=== PATIENT | female | born 1935 | race Caucasian/White ===

== ENCOUNTER 2016-07-29 08:10 | Inpatient (IN) ==
--- NOTE | 2016-07-29 11:15 | Nephrology History & Physical ---
History of Present Illness Chief complaint: Uremia History of present illness: Ms. Arreola is a 80 year old female with progressive CKD who has become symptomatic with N/V and anorexia. She has had a left arm fistula for over one year in anticipation of dialysis. Creatinine has been near 9 and Hct has responded to the use of Aranesp. She has had no MT, stroke, etc. She has remained fairly active until recently but is now clearly anorectic, losing weight, and ready to begin hemodialysis Home Medications Medication Instructions Recorded Confirmed Type Metoprolol Tartrate Tab [Lopressor 50 mg PO BID 07/17/14 07/17/14 History Tab] Sodium Bicarb Tab 650 mg PO TID 07/17/14 07/17/14 History Allergies Allergy/AdvReac Type Severity Reaction Status Date / Time No Known Allergies Allergy Verified 07/17/14 07:30 Review of Systems 12 point system: reviewed and no additional remarkable complaints except as stated Medical,Surgical,& Family Hx - Medical History Cardio: History of: Hypertension - Surgical History Cardiac Surgeries: Patient Denies: Femoral-Popliteal Bypass Graft, Cardiac Catheterization, Cardiac Surgery, Carotid Endarterectomy, Internal Defibrillator, Vascular Access Devices HEENT Surgeries: Patient denies: Carotid Endarterectomy Abdominal Surgeries: Patient denies: Splenectomy Exam - Nephrology - General Appearance General appearance: well-developed, well-nourished, appears started age Neck: no JVD, no thyromegaly, no carotid bruit, supple Respiratory: no kyphosis, no scoliosis Cardiology: no murmurs, no rub, no gallops, no edema, regular rate, regular rhythm, normal S1, normal S2 Gastrointestinal: normoactive bowel sounds Integumentary: no rash, warm and dry Neurologic: no focal deficit, no asterixis, alert and oriented x3, reflexes 2+ and symmetric, gait normal, strength 5/5 Musculoskeletal: no deformities, no erythema, no cyanosis, no clubbing Psychiatric: mood/affect appropriate, cooperative Assessment and Plan - Time spent with patient Time spent with patient: Greater than 30 minutes (1) Uremia of renal origin Status: Acute Assessment and plan: Begin hemodialysis Current Visit: Yes (2) ESRD (end stage renal disease) Problem details: new diagnosis Status: Acute Assessment and plan: Begin hemodialysis Current Visit: Yes (3) Anemia due to chronic kidney disease Status: Acute Assessment and plan: Continue EPO Current Visit: Yes
[2016-07-29] MEDS ORDERED: ACETAMINOPHEN 325 MG TABLET PO PRN (11:19)
[2016-07-29] MEDS ORDERED: ONDANSETRON 4 MG/2 ML VIAL IV PRN (11:19)
[2016-07-29] MEDS ORDERED: ONDANSETRON 4 MG TABLET PO PRN (11:19)
[2016-07-29 11:51] LABS: Basophils # 0.1 10*3/uL (0.0-0.2); Basophils % 0.9 % (0.0-0.8); Eosinophils % 0.1 % (0.00-10.9); Hematocrit 30.6 VOL% (35.7-47.0); Hemoglobin 9.7 GM/DL (12.0-16.0); Immature Granulocytes % 0.5 %; Immature Granulocytes Absolute 0.04 #; Lymphocytes # 1.2 10*3/uL (1.4-4.0); Lymphocytes % 15.2 % (21.3-54.2); Mean Corpuscular HGB Conc 31.7 GM/DL (32-36); Mean Corpuscular Hemoglobin 31 PG (27-34); Mean Corpuscular Volume 96.5 FL (87-102); Mean Platelet Volume 10.1 FL (9.6-12.0); Monocytes # 0.4 10*3/uL (0.11-0.8); Monocytes % 4.9 % (1.7-12.7); Neutrophils # 6.2 10*3/uL (1.4-7.4); Neutrophils % 78.4 % (38.7-73.9); Platelet Count 215 T/CUMM (130-400); Red Blood Count 3.17 MC/CUMM (3.8-5.5); Red Cell Distribution Width 13.2 % (9.3-17.3); White Blood Count 7.9 T/CUMM (4-12)
--- NOTE | 2016-07-29 12:05 | XRay Report ---
XR chest 2V Indication: Shortness of breath Comparison: None available Findings: The heart and mediastinum are normal in size and configuration. The pulmonary vascularity is normal in caliber. Calcified granulomas and right hilar lymph nodes are present. No other lung infiltrates, effusions, pneumothorax or other abnormality is demonstrated. Impression: Calcified granulomas right lung and calcified lymph nodes in right hilum typical of previous granulomatous infection. No other acute findings. PROCEDURE INTERPRETED AT [facility] DEPARTMENT OF RADIOLOGY Final Report Signed by: Dr. Zev Hinton
[2016-07-29 12:22] LABS: Albumin 3.7 G/DL (3.4-5.0); Bilirubin,Total 0.5 MG/DL (0.2-1.0); Calcium 6.3 MG/DL (8.5-10.1); Osmolality,Calculated 313.4 MOS/KG (273-304); Potassium 4.8 MMOL/L (3.5-5.1); Total Protein 6.6 G/DL (6.4-8.3)
[2016-07-29 13:11] LABS: Hepatitis A Ab IgM Quant 0.02 Index; Hepatitis A Ab IgM Result Negative (Negative); Hepatitis B Core IgM Quant 0.23 Index; Hepatitis B Core IgM Result Negative (Negative); Hepatitis B Surface Ag Quant < 0.10 Index; Hepatitis B Surface Ag Result Negative (Negative); Hepatitis C Virus Ab Quant 0.11 Index; Hepatitis C Virus Ab Result Negative (Negative)
[2016-07-29] MEDS ORDERED: LIDOCAINE/PRILOCAINE CREAM 5 GM TUBE TOP PRN (13:42)
[2016-07-29 14:02] LABS: % Iron Saturation 80.1 % (18-50)
--- NOTE | 2016-07-29 14:33 | Dialysis Note ---
Dialysis Note - Dialysis Note Ms. Arreola is seen during her first hemodialysis. She is tolerating very well in her left upper arm fistula is working well. We will remove no fluid today her serum calcium was low when measured yesterday and certainly will be low today and it will take quite a while for that, but this is totally asymptomatic and is due to her renal impairment.
[2016-07-29 17:12] LABS: Apearance,Urine CLEAR (Clear); Bilirubin,Urine Negative (Negative); Blood, Urine Small mg/dL (Negative); Glucose,Urine (UA) >=500 mg/dL (Negative); Ketones,Urine Negative (Negative); Nitrite,Urine Negative (Negative); Protein,Urine 100 MG/DL; Squamous Epithelial Cell,Urine Occasional /HPF (0-10); Urine Color Straw (Yellow); Urine Specific Gravity 1.005 (1.001-1.035); Urine Urobilinogen < 2.0 EU/DL (0.2-1.0); WBC,Urine <1 /HPF (0-6)
[2016-07-29] MEDS: CALCIUM ACETATE 667 MG CAPSULE PO SCH (17:45)
[2016-07-29] MEDS: METOPROLOL TARTRATE 50 MG TABLET PO SCH (20:44)
[2016-07-29] MEDS: CLOBETASOL 0.05% OINT 15 GM TUBE TOP SCH (21:07)
[2016-07-30] MEDS: CALCIUM ACETATE 667 MG CAPSULE PO SCH ×3 (07:28→16:48)
--- NOTE | 2016-07-30 09:14 | Dialysis Note ---
Dialysis Note - Dialysis Note Ms. Arreola is seen during her hemodialysis. She will dialyze 3 hours today. Blood pressure is well maintained. We will plan not to dialyze tomorrow but will dialyze again on August 01. Will make arrangements for admission to the [facility] dialysis unit.
[2016-07-30] MEDS: METOPROLOL TARTRATE 50 MG TABLET PO SCH (11:03)
[2016-07-30] MEDS: amLODIPine 2.5 MG TABLET PO SCH (11:03)
[2016-07-30 12:05] LABS: Basophils # 0.1 10*3/uL (0.0-0.2); Hemoglobin 8.8 GM/DL (12.0-16.0); Immature Granulocytes % 0.5 %; Immature Granulocytes Absolute 0.03 #; Lymphocytes # 0.8 10*3/uL (1.4-4.0); Lymphocytes % 13.3 % (21.3-54.2); Mean Corpuscular HGB Conc 31.4 GM/DL (32-36); Mean Corpuscular Hemoglobin 31 PG (27-34); Mean Corpuscular Volume 97.6 FL (87-102); Mean Platelet Volume 10.3 FL (9.6-12.0); Monocytes # 0.7 10*3/uL (0.11-0.8); Monocytes % 11.2 % (1.7-12.7); Neutrophils # 4.6 10*3/uL (1.4-7.4); Platelet Count 155 T/CUMM (130-400); Red Blood Count 2.87 MC/CUMM (3.8-5.5); Red Cell Distribution Width 13.2 % (9.3-17.3); White Blood Count 6.2 T/CUMM (4-12)
[2016-07-30] MEDS: CLOBETASOL 0.05% OINT 15 GM TUBE TOP SCH ×2 (12:16→21:13)
[2016-07-30 12:40] LABS: Calcium 7.3 MG/DL (8.5-10.1); Osmolality,Calculated 292.3 MOS/KG (273-304)
[2016-07-30] MEDS: ZALEPLON 5 MG CAPSULE PO PRN (21:13)
[2016-07-31] MEDS: CALCIUM ACETATE 667 MG CAPSULE PO SCH ×3 (08:20→17:44)
[2016-07-31] MEDS: CLOBETASOL 0.05% OINT 15 GM TUBE TOP SCH ×2 (08:22→20:44)
[2016-07-31] MEDS ORDERED: DARBEPOETIN ALFA 100 MCG/ML VIAL SUBCUT ONE (09:16)
--- NOTE | 2016-07-31 09:16 | Nephrology Progress Note ---
Nephrology - PN: Subj Interval history: Ms. Arreola is seen in follow-up of her end-stage renal disease. She had an infiltration of her left arm AV fistula yesterday and dialysis was cut short. She is fairly well controlled as far as her uremia and her appetite is begun to return BUN was about 40 yesterday and her hematocrit is stable at 28. She did have caused some lightheadedness yesterday following dialysis and we are holding her blood pressure medicine for now. Her chest is clear in her left arm is bruised as expected over the AV fistula. Plan is to hold off on dialysis tomorrow to rest the fistula and found her an outpatient spot to begin dialysis and possibly be discharged tomorrow and will have her next dialysis take place as an outpatient. She will need a dose of Aranesp today. She is scheduled for that as an outpatient we will give it today Exam (PN)-Nephrology - Vital Signs Vital signs: Period Temp Pulse Resp BP Sys/Summers Pulse Ox Last 24 Hr 96.1 F-99.0 F 72-77 18-20 105-159/46-85 98-99 - Lab 07/30/16 11:53 07/30/16 11:53 Most recent lab results Calcium 7.3 MG/DL (8.5-10.1) L 07/30/16 11:53 Phosphorus 7.0 MG/DL (2.5-4.9) H 07/29/16 11:32 Assessment and Plan (1) Uremia of renal origin Status: Acute Assessment and plan: Begin hemodialysis Current Visit: Yes (2) ESRD (end stage renal disease) Problem details: new diagnosis Status: Acute Assessment and plan: Begin hemodialysis Current Visit: Yes (3) Anemia due to chronic kidney disease Status: Acute Assessment and plan: Continue EPO Current Visit: Yes
[2016-07-31] MEDS: METOPROLOL TARTRATE 50 MG TABLET PO SCH (11:00)
[2016-07-31] MEDS: amLODIPine 2.5 MG TABLET PO SCH (11:01)
[2016-07-31] MEDS: ZALEPLON 5 MG CAPSULE PO PRN (20:43)
[2016-08-01] MEDS: CLOBETASOL 0.05% OINT 15 GM TUBE TOP SCH (08:34)
[2016-08-01] MEDS: CALCIUM ACETATE 667 MG CAPSULE PO SCH ×2 (08:34→11:57)
[2016-08-01 15:33] VITALS: BP 146/58
--- NOTE | 2016-08-01 15:47 | Discharge Summary ---
Hospital Course - Hospital Course Hospital Course: Ms. Arreola is a pleasant 80-year-old lady very functional. 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 She had a creatinine of approximately 11 and BUN of 110 as an outpatient and was admitted to begin hemodialysis. She had her first dialysis on July 29 and a second dialysis on July 30. She infiltrated her AV fistula on the sixth there was some bruising of the arm but no significant hematoma formation. She was mildly hypotensive following that episode but blood pressure medicines were held and she has done well since then. She is discharged now to outpatient dialysis she will ultimately dialyze in the [facility] but will begin dialysis in the [facility] dialysis unit on a Monday schedule. Medicines being held are amlodipine Lopressor and sodium bicarbonate. Blood pressure at the time of discharge is approximately 150/60 but in view of her recent weakness and lightheadedness were holding that until her pressure returns to normal. Her hematocrit is 28 at the time of discharge and she did receive a dose of Aranesp in the hospital. Final diagnosis end-stage renal disease #2 institution of hemodialysis #3 history of hypertension Plan outpatient dialysis initially at the [facility] dialysis unit and ultimately at the [facility] unit. Diagnosis - Discharge Diagnosis (1) Uremia of renal origin Status: Acute (2) ESRD (end stage renal disease) Status: Chronic (3) Anemia due to chronic kidney disease Status: Chronic Specialty Discharge - Follow Up or Referrals - Speciality Discharge Instructions Nephrology Instructions: Dialysis at the [facility] dialysis unit Monday. Ultimately dialysis in the [facility] dialysis unit. Best weight appears to be 57 kg Discharge Plan - Discharge Data Disposition: Disch To Home/Self Care Condition at Discharge: Stable Discharge Diet: advance to your usual diet Activity: resume usual activities as tolerated Hygiene: no restrictions Weight Bearing at Discharge: full weight bearing Driving: no restrictions - Discharge Medications No Action Sodium Bicarb Tab 1,300 mg PO TID Metoprolol Tartrate Tab [Lopressor Tab] 50 mg PO BID amLODIPine [Norvasc] 2.5 mg PO DAILY Calcium Acetate [Phoslo] 1 capsule PO TID Clobetasol Propionate [Clobetasol 0.05% Cream] 1 units TOP DIRECTED Zolpidem [Ambien] 5 mg PO BEDTIME PRN PRN Reason: Sleep - Follow Up or Referral - Forms/Instructions Instructions: Acute Kidney Injury (DC), Dialysis Diet (DC), Anemia (DC) Additional Discharge Instructions: She will hold Norvasc and Lopressor. She does not need to continue with sodium bicarb. She will continue with her steroid ointment for scan and PhosLo 1300 mg with each meal. Exam - Constitutional Vitals: Period Temp Pulse Resp BP Sys/Summers Pulse Ox Last 24 Hr 97.4 F-98.9 F 74-86 17-19 121-160/48-70 96-99 DS: Provider Date of admission: 07/29/16 10:15 Primary care physician: . No PCP Attending physician on admission: Aaron Cook MD Consults: 07/29/16 11:24 Consult to Pharmacy [CONS] Routine Reason for Pharmacy Consult: Adjust Meds Renal Funct 07/30/16 09:14 Consult to Case Mgmt/Social Srvs [CONS] Routine Reason for Case Mgmt/Social Srvs: Dialysis Discharging clinician: Aaron Cook MD
== END 2016-08-01 16:09 | disposition home or self-care (01) | DRG 682 ==
LOC: N.5E 10:15
PROVIDERS: ADMIT Internal Medicine Nephrology; ATTEND Internal Medicine Nephrology

== ENCOUNTER 2016-10-11 14:07 | Observation (INO) ==
--- NOTE | 2016-10-11 17:09 | Emergency Department Note ---
Hira Rivera Brittany, am scribing for, and in the presence of, Richard Wiggins MD 14:46. Feliciano Rivera Phillip K, MD, personally performed the services described in this documentation, ascribed by Kassie Iniguez in my presence, and it is both accurate and complete 709 . Arrival - Arrival Chief Complaint: Non-Specific Stated Complaint: ruptured dialysis graft ED Nursing Triage Note: Pt states that she started dialysis approx 1130 this am - pt states that she started having pain to her dialysis site - hematoma noted to dialysis fistula Mode of Arrival: Stretcher Limitations: No Limitations Source: Patient, RN Notes Reviewed - History of Present Illness HPI Narrative: Patient is an 80 y/o white female presenting to the ED with c/o pain near left AV fistula site s/p beginning dialysis this morning at 1130. Patient states that while at dialysis on , October 06 s/p venipuncture and beginning of dialysis, noticed that her LUE began to swell near AV fistula site. Patient reports she noticed a "knot" formation in the left anterior chest wall s/p onset of swelling of the LUE. Patient states that swelling had decreased, but worsened today after beginning dialysis this morning. Patient confirms left anterior chest wall tenderness to palpation. She reports that her AV fistula was placed about 4-[address] Swann and about 3-4 weeks ago she had stent placement per Dr. Alcocer. Patient initially began taking dialysis about 3 months ago per family member. Patient has no other complaint/pain. Onset (ago): hour(s) (3) Consistency: constant Date of Last Menstrual Period: hyster Allergies/Adverse Reactions: Allergies Allergy/AdvReac Type Severity Reaction Status Date / Time No Known Allergies Allergy Unverified 10/11/16 14:08 Home Medications: Home Medications Medication Instructions Recorded Confirmed Type Metoprolol Tartrate Tab [Lopressor 50 mg PO BID 07/17/14 07/29/16 History Tab] Sodium Bicarb Tab 1,300 mg PO TID 07/17/14 07/29/16 History Calcium Acetate [Phoslo] 1 capsule PO TID 07/29/16 07/29/16 History Clobetasol Propionate [Clobetasol 1 units TOP DIRECTED 07/29/16 07/29/16 History 0.05% Cream] Zolpidem [Ambien] 5 mg PO BEDTIME PRN 07/29/16 07/29/16 History amLODIPine [Norvasc] 2.5 mg PO DAILY 07/29/16 07/29/16 History Review of System - Review of System 12 point system: reviewed and no additional remarkable complaints except as stated - Review of System Constitutional: Absent: chills, fever Eyes: Absent: vision change Head/Ears/Nose/Throat: Absent: nasal drainage, sore throat Respiratory: Absent: respiratory distress Cardiovascular: Absent: chest pain Gastrointestinal: Absent: abdominal pain, nausea, vomiting, diarrhea, constipation Genitourinary female: Absent: dysuria, frequency, urgency Musculoskeletal: Present: arm pain (near AV fistula site), other (LUE swelling; chest knot). Absent: back pain, leg pain, neck pain Skin: Absent: rash Neurological: Absent: headache Psychiatric: Absent: anxiety, depression Medical,Surgical,& Family Hx - Medical History Cardio: History of: Hypertension Psychological: No history of: Anxiety Disorders, ADHD, Behavior Problems, Bipolar Disorder, Depression, Previous Suicide Attempt, Psychiatric/Substance Abuse Tx, Schizophrenia, Psychiatric Problems Neurology: No history of: Seizures Renal: History of: Dialysis, Renal Failure (mon) - Surgical History Cardiac Surgeries: Patient Denies: Femoral-Popliteal Bypass Graft, Cardiac Catheterization, Cardiac Surgery, Carotid Endarterectomy, Internal Defibrillator, Vascular Access Devices HEENT Surgeries: Surgical HX of: Tonsilectomy & Adenoidectomy (tonsillectomy) Patient denies: Carotid Endarterectomy Abdominal Surgeries: Patient denies: Splenectomy Reproductive Surgeries: Surgical HX of;: Hysterectomy - Social History Smoking Status: Never smoker Frequency of Alcohol Use: None Type of Drug Use: None Exam Vital Signs: Vital Signs Temperature 97.4 F L 10/11/16 14:15 Pulse Rate 76 10/11/16 14:45 Respiratory Rate 20 10/11/16 14:45 Blood Pressure 164/72 10/11/16 14:45 O2 Sat by Pulse Oximetry 100 10/11/16 14:45 - General General appearance: alert, in no apparent distress - Head Head exam: Present: atraumatic, normocephalic, normal inspection - Eye Eye exam: Present: normal appearance, PERRL, EOMI - ENT ENT exam: Present: normal exam, normal oropharynx - Neck Neck exam: Present: normal inspection, full ROM, trachea midline - Chest Chest inspection: Present: symmetric chest wall rise, tenderness (left anterior chest wall tenderness to palpation). Absent: normal inspection (swelling to the left anterior chest wall) - Respiratory Respiratory exam: Present: normal lung sounds bilaterally - Cardiovascular Cardiovascular exam: Present: regular rate, normal rhythm, normal heart sounds - Abdominal Exam Abdominal exam: Present: soft, normal bowel sounds. Absent: tenderness - Extremities Exam Extremities exam: Present: full ROM, other (left AV fistula) - Back Exam Back exam: Present: normal inspection - Neurological Exam Neurological exam: Present: alert, oriented X3, CN II-XII intact. Absent: motor sensory deficit - Psychiatric Psychiatric exam: Present: normal affect, normal mood - Skin Skin exam: Present: warm, dry Results - Diagnostic Findings Procedure: Ultrasound: report reviewed by me (Sonogram of the left upper arm reveals a large hematoma compressing on the fistula with a clot in the fistula.) Disposition Clinical Impression: Hematoma left upper arm, Clot in AV fistula, ESRD (end stage renal disease) Case discussed with: patient, patient's family Disposition: Still a Patient Condition: Stable Additional Instructions: Admit to Dr. Gutierrez who will place a dialysis catheter in the a.m.
[2016-10-11] MEDS ORDERED: ACETAMINOPHEN 325 MG TABLET PO PRN (17:12)
[2016-10-11] MEDS ORDERED: ONDANSETRON 4 MG/2 ML VIAL IV PRN (17:12)
--- NOTE | 2016-10-11 17:22 | Ultrasound Report ---
US arterial duplex UE LT Clinical Information: Evaluate fistula, Left upper extremity swelling, pain with dialysis Comparison: Comparison made to prior fistulogram dated 08/26/2016 Technique: Targeted ultrasound evaluation of the left upper extremity arteries and fistula with venous drainage was performed with color Doppler and spectral analysis. Findings: There is note made of prominent generalized soft tissue swelling within the left upper chest and left upper arm. There is a prominent echogenic/hypoechoic collection overlying the left cephalic vein fistula which prominently narrows the cephalic vein due to extrinsic compression and is nonspecific but favored to represent a hematoma. There is also a small filling defect noted within the left cephalic vein near the valve which may represent a nonobstructing thrombus. The left common carotid artery, subclavian artery, axillary artery and brachial artery are widely patent with preserved blood flow. The brachial to cephalic fistula appears widely patent. There is also suggestion of widely patent drainage throughout the cephalic vein including visualization of the central cephalic vein to internal jugular vein confluence. Impression: Patent brachial to cephalic vein arteriovenous fistula with external compression due to an overlying hematoma. Small nonocclusive thrombus within the cephalic vein near the valve, possibly related to external compression. Mild generalized subcutaneous edema throughout the left upper arm and chest wall. PROCEDURE INTERPRETED AT [facility] DEPARTMENT OF RADIOLOGY Final Report Signed by: Grover Beyer
[2016-10-11 17:47] LABS: Basophils # 0.1 10*3/uL (0.0-0.2); Basophils % 0.9 % (0.0-0.8); Eosinophils # 0.2 10*3/uL (0.0-0.87); Eosinophils % 2.4 % (0.00-10.9); Hematocrit 40.8 VOL% (35.7-47.0); Hemoglobin 13.4 GM/DL (12.0-16.0); Immature Granulocytes % 0.2 %; Immature Granulocytes Absolute 0.01 #; Lymphocytes # 1.6 10*3/uL (1.4-4.0); Lymphocytes % 23.3 % (21.3-54.2); Mean Corpuscular HGB Conc 32.8 GM/DL (32-36); Mean Corpuscular Hemoglobin 32 PG (27-34); Mean Corpuscular Volume 98.8 FL (87-102); Mean Platelet Volume 11.6 FL (9.6-12.0); Monocytes # 0.6 10*3/uL (0.11-0.8); Monocytes % 9.6 % (1.7-12.7); Neutrophils # 4.2 10*3/uL (1.4-7.4); Neutrophils % 63.6 % (38.7-73.9); Platelet Count 190 T/CUMM (130-400); Red Blood Count 4.13 MC/CUMM (3.8-5.5); Red Cell Distribution Width 13.6 % (9.3-17.3); White Blood Count 6.7 T/CUMM (4-12)
[2016-10-11 17:58] LABS: Calcium 9.4 MG/DL (8.5-10.1); Potassium 4.9 MMOL/L (3.5-5.1)
--- NOTE | 2016-10-12 08:43 | General Surg History&Physical ---
Assessment and Plan - Time spent with patient Time spent with patient: Greater than 30 minutes (1) End-stage renal disease on hemodialysis Status: Acute Assessment and plan: 80-year-old white female with history of hypertension and end-stage renal disease on hemodialysis admitted by Dr. Cordero with pain and edema of her left upper extremity near her fistula site. The swelling has improved and her pain has improved. She has a good bruit and thrill in the fistula. Dr. Cordero will place a tunneled hemodialysis catheter today in the operating room and patient can be discharged home later today. She will have dialysis through the catheter until her arm has healed up. Dr. Cordero has seen and examined patient and further recommendations to follow. Current Visit: Yes (2) Hypertension Status: Acute Current Visit: Yes (3) Left upper arm pain Status: Acute Current Visit: Yes History of Present Illness Chief complaint: Left arm pain History of present illness: Ms. Arreola is a 80 year old white female with history of hypertension and end- stage renal disease on hemodialysis admitted through the emergency room on 2016 complaining of pain near her left AV fistula site. Patient states that on dialysis on the status post venipuncture and beginning of dialysis she noticed her left upper extremity began to swell near the AV fistula site. There is a knot formation in left anterior chest wall with swelling. She says the swelling is decreased but the pain was worsening so she came to the ED. Patient states it looks better to her other than the bruising and the swelling has decreased today but is still a little sore. Her vital signs are stable and her labs are stable. Upper extremity duplex shows patent brachial to cephalic vein AV fistula with external compression due to an overlying hematoma. There was a small nonocclusive thrombus within the cephalic cephalic vein near the valve. On exam patient has some bruising of her left upper extremity up into her shoulder with minimal edema around the deltoid and dark ecchymosis. She has a good thrill and bruit in her fistula. She denies headache, dizziness, chest pain, shortness of breath, abdominal pain , or lower extremity swelling. Patient's case was discussed with Dr. Wiggins the ED physician and Dr. Cordero the surgeon and it was agreed she would be admitted for treatment. Home Medications Medication Instructions Recorded Confirmed Type Metoprolol Tartrate Tab [Lopressor 50 mg PO BID 07/17/14 10/11/16 History Tab] Calcium Acetate [Phoslo] 1 capsule PO TID 07/29/16 10/11/16 History Clobetasol Propionate [Clobetasol 1 units TOP BID 07/29/16 10/11/16 History 0.05% Cream] Zolpidem [Ambien] 5 mg PO BEDTIME PRN 07/29/16 10/11/16 History amLODIPine [Norvasc] 2.5 mg PO DAILY 07/29/16 10/11/16 History Allergies Allergy/AdvReac Type Severity Reaction Status Date / Time No Known Allergies Allergy Unverified 10/11/16 14:08 Medical,Surgical,& Family Hx - Medical History Cardio: History of: Hypertension Psychological: No history of: Anxiety Disorders, ADHD, Behavior Problems, Bipolar Disorder, Depression, Previous Suicide Attempt, Psychiatric/Substance Abuse Tx, Schizophrenia, Psychiatric Problems Neurology: No history of: Seizures HEENT: History of: Eye Problem (glasses) Rheumatology: History of;: Rheumatoid Arthritis Renal: History of: Dialysis, Renal Failure ([facility]) Gastrointestinal: History of: Diverticulitis/ Diverticulosis Musculoskeletal: History of: Musculoskeletal Problems (Carpal tunnel) Hematology: History of: Clotting Problems (left AV graft clotted.) - Surgical History Cardiac Surgeries: Patient Denies: Femoral-Popliteal Bypass Graft, Cardiac Catheterization, Cardiac Surgery, Carotid Endarterectomy, Internal Defibrillator, Vascular Access Devices HEENT Surgeries: Surgical HX of: Tonsilectomy & Adenoidectomy (tonsillectomy) Patient denies: Carotid Endarterectomy Abdominal Surgeries: Surgical HX of: Appendectomy, Colonoscopy Patient denies: Splenectomy Reproductive Surgeries: Surgical HX of;: Gynecologic Surgery, Hysterectomy - Family History Family History: Reports;: Family Cancer - Social History Smoking Status: Never smoker Frequency of Alcohol Use: None Type of Drug Use: None Marital Status: Lives With:: Alone Functional capacity: independent ambulation Exam - Constitutional Vitals: Period Temp Pulse Resp BP Sys/Summers Pulse Ox Last 24 Hr 96.8 F-97.7 F 67-79 18-20 130-192/60-102 97-100 Exam: Constitutional System: No distress. No tremulousness. Head: Normocephalic, atraumatic. Ears, Nose and Throat System: No evidence of Otitis or Mastoiditis. No epistaxis or discharge, poor dentition Eyes System: Pupils equal, round, and reactive. Extraocular muscles intact. Neck: Supple, without adenopathy, No jugular venous distention. No thyromegaly, neck mass, or prior surgery apparent. Respiratory System: Chest clear to auscultation. Cardiovascular System: Heart with regular rate and rhythm. No murmur. GI System: Abdomen soft, nontender. Normo active bowel sounds present. Musculoskeletal System: limbs with no pedal edema. Full distal pulses. Left upper extremity with dark ecchymosis and mild edema around deltoid, good bruit and thrill in fistula Neurological System: No discernable sensory deficit. No aphasia Psychiatric System: Conversation is rational Review of systems: A complete 10 system review of systems was obtained and pertinent positives and negatives per HPI Quality Measures - VTE Contraindication to Pharmacological VTE Prophylaxis: High Risk of Bleeding Results - Labs CBC & BMP: 10/11/16 14:23 10/11/16 14:23 Lab Results: I have reviewed the past 24 hour labs - Diagnostic Findings Procedure: Ultrasound: report reviewed by me (Duplex of left upper extremity showed patent brachial to cephalic vein AV fistula with external compression due to hematoma)
[2016-10-12] MEDS ORDERED: ZALEPLON 5 MG CAPSULE PO PRN (08:50)
[2016-10-12] MEDS ORDERED: amLODIPine 2.5 MG TABLET PO SCH (09:00)
[2016-10-12] MEDS ORDERED: METOPROLOL TARTRATE 50 MG TABLET PO SCH (09:00)
[2016-10-12] MEDS ORDERED: CLOBETASOL 0.05% CREAM 15 GM TUBE TOP SCH (09:00)
[2016-10-12] MEDS: CALCIUM ACETATE 667 MG CAPSULE PO SCH ×2 (09:10→15:07)
--- NOTE | 2016-10-12 10:11 | EKG Report ---
Stationary ECG Study [facility] Test Date: 10/12/2016 10:12:22 AM Pat Name: BERTHA LAROSE Department: Room: 339 Gender: F [employer]: : [id number] Requested by: Brian Chavez Order Number: [id number] Reading MD: CARLY MORENO Intervals [place] Rate: 62 P: 72 [place]: 167 QRS: 50 QRSD: 89 T: 50 QT: 434 QTc: 439 Interpretive Statements SINUS RHYTHM Electronically Signed On 10-14-16 15:48:00 CDT by CARLY MORENO [email or web address]
[2016-10-12] MEDS ORDERED: HEPARIN 5,000 UNIT/1 ML VIAL ONE (11:38)
[2016-10-12] MEDS ORDERED: BUPIVACAINE 0.25% /EPI 10 ML VIAL ONE (11:38)
[2016-10-12] MEDS ORDERED: LIDOCAINE 1%/EPI INJ 20 ML VIAL ONE (11:39)
[2016-10-12] MEDS ORDERED: PROPOFOL 200 MG/20 ML VIAL IV ONE (11:58)
[2016-10-12] MEDS ORDERED: LIDOCAINE 2% 5 ML VIAL ONE (11:58)
--- NOTE | 2016-10-12 12:33 | Operative Note ---
Date of procedure: 10/12/16 Pre-op diagnosis: End-stage renal disease, malfunctioning AV fistula Post-op diagnosis: same Procedure: Procedure performed: Placement of right internal jugular tunneled hemodialysis catheter #2 ultrasound-guided venous access #3 supervision and interpretation fluoroscopy Procedure in detail: After informed consent was obtained, patient taken operating suite lights upon the operating table. After monitored anesthesia initiated patient was placed in Trendelenburg position the bilateral neck and chest were prepped and draped in usual sterile fashion. After procedural pause ultrasound brought over through a sterile sleeve covering ultrasound the right neck revealed a patent and compressible although small right internal jugular vein. The right internal jugular vein was then accessed using an 18-gauge Seldinger needle under ultrasound guidance on the first attempt. There is return of nonpulsatile dark red blood. Guidewire inserted without resistance. Fluoroscopy demonstrated guidewire be coursing the appropriate position. Next a 19 cm cuffed hemodialysis catheter was tunneled from separate incision in the right chest wall up to the base the right neck. Dilator and sheath were placed over the guidewire using Seldinger technique under fluoroscopic guidance. Dilator and guidewire were removed leaving the sheath in place. The catheter inserted through the sheath and the sheath peeled away leaving the catheter tip in Spear vena cava. Catheter withdrew and flushed easily and was locked with heparinized saline. Catheter was secured in place with 2-0 nylon. Incision closed with 2-0 nylon. Sterile dressings applied. Patient was taken to recovery room in stable condition. All lap and needle counts correct at the end of the case. Anesthesia: MAC, local Surgeon / Physician: Arsenio Cordero Estimated blood loss: other (Less than 10 cc) Specimens: none sent Condition: stable Disposition: PACU Results - Labs CBC & BMP: 10/11/16 14:23 10/11/16 14:23 Discharge Plan - Discharge Medications No Action Metoprolol Tartrate Tab [Lopressor Tab] 50 mg PO BID amLODIPine [Norvasc] 2.5 mg PO DAILY Calcium Acetate [Phoslo] 1 capsule PO TID Clobetasol Propionate [Clobetasol 0.05% Cream] 1 units TOP BID Zolpidem [Ambien] 5 mg PO BEDTIME PRN PRN Reason: Sleep - Follow Up or Referral - Forms/Instructions
--- NOTE | 2016-10-12 12:48 | Anesthesia Post-Op ---
Anesthesia Post OP - Post Ansesthetic Evaluation Patient seen in post op: Yes Resp: within normal limits CV: within normal limits Mental: within normal limits Temp: within normal limits Ndoy-[id number]: within normal limits Nausea and Vomiting: within normal limits Pain: within normal limits
[2016-10-12] MEDS ORDERED: MIDAZOLAM 2 MG/2 ML VIAL ONE (12:55)
[2016-10-12] MEDS ORDERED: fentaNYL 100 MCG/2 ML VIAL ONE (12:56)
[2016-10-12] MEDS ORDERED: SODIUM CHLORIDE 0.9% 100 ML IV ONE (12:56)
[2016-10-12] MEDS ORDERED: ePHEDrine 50 MG/ML AMP ONE (12:56)
--- NOTE | 2016-10-12 13:11 | XRay Report ---
XR chest 1V portable Indication: Catheter placement Comparison: Chest x-ray dated July 29, 2016 Technique: Single frontal view of the chest. Findings: Right-sided central venous catheter tip projects over the proximal SVC. The cardiomediastinal silhouette is stable in configuration. Chronic/granulomatous change without focal consolidation, pleural effusion, or pneumothorax. Vascular stent projects over the mid left clavicle. Visualized osseous and surrounding soft tissue structures otherwise appear grossly unchanged. IMPRESSION: No adverse interval change. PROCEDURE INTERPRETED AT [facility] Final Report Signed by: Dr Melecio Cowart
[2016-10-12] MEDS ORDERED: ONDANSETRON 4 MG/2 ML VIAL ONE (13:22)
[2016-10-12] MEDS ORDERED: HYDROmorphone 2 MG/1 ML VIAL ONE (13:22)
[2016-10-12] MEDS ORDERED: ONDANSETRON 4 MG/2 ML VIAL IV PRN (13:22)
[2016-10-12] MEDS ORDERED: HYDROmorphone 2 MG/1 ML VIAL IV PRN (13:22)
[2016-10-12] MEDS ORDERED: SODIUM CHLORIDE 0.9% 1,000 ML IV SCH (13:30)
[2016-10-12] MEDS ORDERED: SODIUM CHLORIDE 0.9% 250 ML IV SCH (13:30)
--- NOTE | 2016-10-12 14:25 | Discharge Summary ---
Hospital Course - Hospital Course Hospital Course: Ms. Arreola is a very pleasant 80-year-old white female with history of hypertension and end-stage renal disease on hemodialysis admitted by Dr. Cordero on 10/11/2016 with a painful left upper extremity AV fistula site. After her last dialysis patient had pain swelling and bruising of this left upper arm. Patient had a good bruit and thrill of this aVF and duplex ultrasound showed patent brachial to cephalic vein AV fistula with an external compression due to an overlying hematoma. Patient was taken to the operating room on 10/12/2016 for placement of a tunneled hemodialysis catheter. Patient is to use this for hemodialysis until cleared by Dr. Cordero to start using her fistula again. She will be discharged home with a one-week follow-up with Dr. Cordero. She will be given some pain medicines and instructed not to use her IVF for HD. Complete discharge instructions were given to the patient and her family in the room. Care coordination, chart review, and completed discharge paperwork took approximately 32 minutes. - Time spent with patient Time with patient DS: Greater than 30 minutes Diagnosis - Discharge Diagnosis (1) End-stage renal disease on hemodialysis Status: Chronic (2) Hypertension Status: Chronic (3) Left upper arm pain Status: Acute Discharge Plan - Discharge Data Disposition: Disch To Home/Self Care Condition at Discharge: Stable Discharge Diet: heart healthy Activity: resume usual activities as tolerated Hygiene: may shower Driving: other (No driving if taking pain medications) Contact your physician if you experience:: fever over 101, Redness or swelling, Bleeding - Discharge Medications New HYDROcodone/ACETAMIN 7.5-325 [Martin 7.5-325] 1 tablet PO Q4H PRN #20 tablet PRN Reason: Pain Moderate (4-7) Continue Metoprolol Tartrate Tab [Lopressor Tab] 50 mg PO BID amLODIPine [Norvasc] 2.5 mg PO DAILY Calcium Acetate [Phoslo] 1 capsule PO TID Clobetasol Propionate [Clobetasol 0.05% Cream] 1 units TOP BID Zolpidem [Ambien] 5 mg PO BEDTIME PRN PRN Reason: Sleep - Follow Up or Referral Follow Up: Arsenio Cordero MD [Physician] - 1 Week - Forms/Instructions Exam - Constitutional Vitals: Period Temp Pulse Resp BP Sys/Summers Pulse Ox Last 24 Hr 96.8 F-98.2 F 62-88 16-20 130-164/54-77 95-100 Exam: 80-year-old white female, no acute distress, alert and oriented Chest clear CV regular rate and rhythm Abdomen soft nontender Extremities with no edema, left upper extremity with dark ecchymosis and minimal swelling around deltoid, good bruit and thrill Discharge Results Labs on day of discharge: Labs from last 24 hours 10/11/16 10/11/16 10/11/16 18:50 14:23 14:23 WBC 6.7 RBC 4.13 Hgb 13.4 Hct 40.8 MCV 98.8 MCH 32 MCHC 32.8 RDW 13.6 Plt Count 190 MPV 11.6 Neut % (Auto) 63.6 Lymph % (Auto) 23.3 [place] % (Auto) 9.6 Eos % (Auto) 2.4 Baso % (Auto) 0.9 H Neut # (Auto) 4.2 Lymph # (Auto) 1.6 [place] # (Auto) 0.6 Eos # (Auto) 0.2 Baso # (Auto) 0.1 Immature Gran % 0.2 Nucleated RBC % 0.0 Immature Gran # 0.01 Nucleated RBCs # 0.00 Sodium 136 Potassium 4.9 Chloride 100 Carbon Dioxide 27 Anion Gap 13.9 BUN 34 H Creatinine 5.50 H GFR Calculation 6 BUN/Creatinine Ratio 6.00 Glucose 134 H POC Glucose 111 H Calculated Osmolality 281.0 Calcium 9.4 DS: Provider Date of admission: 10/11/16 17:11 Primary care physician: . No PCP Attending physician on admission: Arsenio Cordero MD Consults: 10/12/16 08:11 Consult to Anesthesiology [CONS] Routine Consulting Provider: Reason for Anesthesiology: Pre-op Clearance Discharging clinician: ROSIBEL Santana Expected date of discharge: 10/12/16
[2016-10-12 15:29] VITALS: BP 120/53
== END 2016-10-12 16:00 | disposition home or self-care (01) ==
LOC: EDBD → EDUNIT# → N.ED 14:07 → N.EDINP 14:07 → N.3E 18:09
PROVIDERS: ADMIT Surgery; ATTEND Surgery

== ENCOUNTER 2018-08-25 10:40 | Inpatient (IN) ==
[2018-08-25] MEDS ORDERED: ONDANSETRON 4 MG/2 ML VIAL ONE (11:44)
[2018-08-25] MEDS ORDERED: ONDANSETRON 4 MG/2 ML VIAL IV STA (11:49)
[2018-08-25] MEDS ORDERED: HYDROmorphone 2 MG/1 ML VIAL ONE (11:52)
[2018-08-25 11:53] LABS: Basophils # 0.1 10*3/uL (0.0-0.2); Basophils % 1.4 % (0.0-0.8); Eosinophils # 0.1 10*3/uL (0.0-0.87); Eosinophils % 1.4 % (0.00-10.9); Hematocrit 38.5 VOL% (35.7-47.0); Hemoglobin 12.4 GM/DL (12.0-16.0); Immature Granulocytes % 0.4 %; Immature Granulocytes Absolute 0.03 #; Lymphocytes # 0.9 10*3/uL (1.4-4.0); Lymphocytes % 10.6 % (21.3-54.2); Mean Corpuscular HGB Conc 32.2 GM/DL (32-36); Mean Platelet Volume 10.1 FL (9.6-12.0); Monocytes % 9.8 % (1.7-12.7); Neutrophils % 76.4 % (38.7-73.9); Platelet Count 217 T/CUMM (130-400); Red Blood Count 3.93 MC/CUMM (3.8-5.5); Red Cell Distribution Width 13.6 % (9.3-17.3)
[2018-08-25] MEDS ORDERED: HYDROmorphone 2 MG/1 ML VIAL IV STA (12:06)
[2018-08-25 12:10] LABS: Apearance,Urine CLEAR (Clear); Bilirubin,Urine Negative (Negative); Blood, Urine Negative (Negative); Glucose,Urine (UA) >=500 mg/dL (Negative); Ketones,Urine Negative (Negative); Mucus,Urine Occasional /LPF (Occasional); Nitrite,Urine Negative (Negative); Protein,Urine >=500 MG/DL; RBC,Urine 2 /HPF (0-4); Squamous Epithelial Cell,Urine Occasional /HPF (0-10); Urine Color Yellow (Yellow); Urine Specific Gravity 1.005 (1.001-1.035); Urine Urobilinogen < 2.0 EU/DL (0.2-1.0); WBC,Urine 27 /HPF (0-6)
[2018-08-25 12:24] LABS: Albumin 4.1 G/DL (3.4-5.0); Bilirubin,Total 2.2 MG/DL (0.2-1.0); Calcium 10.3 MG/DL (8.5-10.1); Osmolality,Calculated 275.8 MOS/KG (273-304); Total Protein 7.8 G/DL (6.4-8.3)
[2018-08-25] MEDS ORDERED: PIPERACILLIN/TAZOBACTAM 2,250 MG in SODIUM CHLORIDE 0.9% 100 ML IV STA (12:39)
[2018-08-25] MEDS ORDERED: ONDANSETRON 4 MG/2 ML VIAL IV PRN (13:55)
[2018-08-25] MEDS ORDERED: ACETAMINOPHEN 325 MG TABLET PO PRN (13:55)
[2018-08-25] MEDS ORDERED: cloNIDine 0.1 MG TABLET ONE ×2 (14:56→15:00)
[2018-08-25] MEDS ORDERED: cloNIDine 0.1 MG TABLET PO STA (15:11)
[2018-08-25] MEDS: SODIUM CHLORIDE 0.45% 1,000 ML IV SCH (15:21)
[2018-08-25] MEDS: ENOXAPARIN 30 MG/0.3 ML SYRINGE SUBCUT SCH (16:57)
[2018-08-25] MEDS ORDERED: cloNIDine 0.1 MG TABLET PO SCH (23:30)
[2018-08-25] MEDS: METOPROLOL TARTRATE 50 MG TABLET PO SCH (23:53)
[2018-08-25] MEDS: diphenhydrAMINE CAP 25 MG CAPSULE PO PRN (23:54)
[2018-08-26] MEDS: SODIUM CHLORIDE 0.45% 1,000 ML IV SCH ×2 (04:30→12:07)
[2018-08-26 05:53] LABS: Basophils # 0.1 10*3/uL (0.0-0.2); Basophils % 1.2 % (0.0-0.8); Eosinophils # 0.2 10*3/uL (0.0-0.87); Eosinophils % 3.1 % (0.00-10.9); Hematocrit 27.1 VOL% (35.7-47.0); Hemoglobin 8.7 GM/DL (12.0-16.0); Immature Granulocytes % 0.4 %; Immature Granulocytes Absolute 0.02 #; Lymphocytes # 1.2 10*3/uL (1.4-4.0); Lymphocytes % 22.5 % (21.3-54.2); Mean Corpuscular HGB Conc 32.1 GM/DL (32-36); Mean Corpuscular Volume 97.8 FL (87-102); Mean Platelet Volume 10.6 FL (9.6-12.0); Monocytes % 18.6 % (1.7-12.7); Neutrophils % 54.2 % (38.7-73.9); Platelet Count 135 T/CUMM (130-400); Red Blood Count 2.77 MC/CUMM (3.8-5.5); Red Cell Distribution Width 13.9 % (9.3-17.3); White Blood Count 5.2 T/CUMM (4-12)
[2018-08-26 06:16] LABS: Albumin 2.9 G/DL (3.4-5.0); Bilirubin,Total 3.1 MG/DL (0.2-1.0); Calcium 8.9 MG/DL (8.5-10.1); Osmolality,Calculated 271.2 MOS/KG (273-304); Total Protein 5.5 G/DL (6.4-8.3)
[2018-08-26 06:47] LABS: Eosinophils 5 % (0-10); Hypochromasia 1+; Lymphocytes 23 % (20-55); Platelet Estimate Normal; Segmented Neutrophils 55 % (50-85); Total Cells Counted 100
[2018-08-26] MEDS: METOPROLOL TARTRATE 50 MG TABLET PO SCH ×2 (08:08→20:34)
[2018-08-26] MEDS ORDERED: PANTOPRAZOLE 40 MG TABLET PO SCH (09:00)
[2018-08-26 12:55] LABS: Hepatitis B Surface Ag Quant < 0.10 Index; Hepatitis B Surface Ag Result Negative (Negative); Hepatitis C Virus Ab Quant 0.07 Index; Hepatitis C Virus Ab Result Negative (Negative)
[2018-08-26] MEDS: ENOXAPARIN 30 MG/0.3 ML SYRINGE SUBCUT SCH (14:02)
[2018-08-26] MEDS: ERTAPENEM 500 MG in SODIUM CHLORIDE 0.9% 100 ML IV SCH (16:01)
[2018-08-26] MEDS: diphenhydrAMINE CAP 25 MG CAPSULE PO PRN (20:34)
[2018-08-26] MEDS: PANTOPRAZOLE 40 MG TABLET PO SCH (20:35)
[2018-08-27 05:57] LABS: Basophils # 0.1 10*3/uL (0.0-0.2); Basophils % 1.6 % (0.0-0.8); Eosinophils # 0.4 10*3/uL (0.0-0.87); Eosinophils % 6.7 % (0.00-10.9); Hematocrit 28.8 VOL% (35.7-47.0); Hemoglobin 9.3 GM/DL (12.0-16.0); Immature Granulocytes % 1.2 %; Immature Granulocytes Absolute 0.07 #; Lymphocytes % 17.9 % (21.3-54.2); Mean Corpuscular HGB Conc 32.3 GM/DL (32-36); Mean Corpuscular Volume 98.3 FL (87-102); Mean Platelet Volume 10.7 FL (9.6-12.0); Neutrophils % 58.6 % (38.7-73.9); Platelet Count 159 T/CUMM (130-400); Red Blood Count 2.93 MC/CUMM (3.8-5.5); Red Cell Distribution Width 13.8 % (9.3-17.3); White Blood Count 5.7 T/CUMM (4-12)
[2018-08-27 06:01] LABS: PT Patient Result 10.5 SECS
[2018-08-27] MEDS ORDERED: INDOMETHACIN SUPP 50 MG SUPP RECTAL ONE (08:45)
[2018-08-27] MEDS ORDERED: LACTATED RINGERS 1,000 ML IV SCH (09:00)
[2018-08-27 09:04] LABS: Albumin 2.7 G/DL (3.4-5.0); Bilirubin,Total 1.6 MG/DL (0.2-1.0); Calcium 8.8 MG/DL (8.5-10.1); Total Protein 5.7 G/DL (6.4-8.3)
[2018-08-27] MEDS ORDERED: SEVOFLURANE 1 UNIT/15 MINUTE INH ONE (10:25)
[2018-08-27] MEDS ORDERED: GLYCOPYRROLATE 0.4 MG/2 ML VIAL ONE (10:25)
[2018-08-27] MEDS ORDERED: LIDOCAINE 2% 5 ML VIAL ONE (10:25)
[2018-08-27] MEDS ORDERED: SODIUM CHLORIDE 0.9% 250 ML BAG IV ONE (10:25)
[2018-08-27] MEDS ORDERED: PROPOFOL 200 MG/20 ML VIAL IV ONE (10:25)
[2018-08-27] MEDS ORDERED: NEOSTIGMINE 10 MG/10 ML VIAL ONE (10:25)
[2018-08-27] MEDS ORDERED: ETOMIDATE 20 MG/10 ML VIAL IV ONE (10:25)
[2018-08-27] MEDS ORDERED: ONDANSETRON 4 MG/2 ML VIAL ONE (10:25)
[2018-08-27] MEDS ORDERED: SUCCINYLCHOLINE 200 MG/10 ML VIAL ONE (10:25)
[2018-08-27] MEDS ORDERED: DEXAMETHASONE 4 MG/1 ML VIAL ONE (10:25)
[2018-08-27] MEDS ORDERED: EPOETIN ALFA 10,000 UNIT/1 ML VIAL IV PRN (11:13)
[2018-08-27] MEDS ORDERED: GLUCAGON 1 MG VIAL ONE (12:00)
[2018-08-27] MEDS ORDERED: SODIUM CHLORIDE 0.9% 1,000 ML IV SCH ×2 (12:52→13:00)
[2018-08-27] MEDS ORDERED: fentaNYL 100 MCG/2 ML VIAL ONE (14:00)
[2018-08-27] MEDS ORDERED: hydrALAZINE 20 MG/1 ML VIAL IV PRN (16:05)
[2018-08-27] MEDS: LOSARTAN 50 MG TABLET PO SCH (18:10)
[2018-08-27] MEDS: METOPROLOL TARTRATE 50 MG TABLET PO SCH ×2 (18:10→21:28)
[2018-08-27] MEDS: PANTOPRAZOLE 40 MG TABLET PO SCH ×2 (18:11→21:28)
[2018-08-27] MEDS: ERTAPENEM 500 MG in SODIUM CHLORIDE 0.9% 100 ML IV SCH (18:15)
[2018-08-27 19:34] LABS: Hematocrit 34.9 VOL% (35.7-47.0); Hemoglobin 11.6 GM/DL (12.0-16.0)
[2018-08-27] MEDS ORDERED: MORPHINE 4 MG/1 ML VIAL IV PRN (20:54)
[2018-08-27] MEDS ORDERED: cloNIDine 0.1 MG TABLET PO SCH (21:00)
[2018-08-27] MEDS: cloNIDine 0.1 MG TABLET PO SCH (21:28)
[2018-08-27] MEDS: CALCIUM ACETATE 667 MG CAPSULE PO SCH (21:28)
[2018-08-27] MEDS ORDERED: LACTATED RINGERS 1,000 ML IV ONE (22:38)
[2018-08-28] MEDS: LACTATED RINGERS 1,000 ML IV SCH ×2 (01:13→14:22)
[2018-08-28 04:41] LABS: Basophils % 0.2 % (0.0-0.8); Eosinophils % 0.2 % (0.00-10.9); Hematocrit 29.7 VOL% (35.7-47.0); Hemoglobin 9.4 GM/DL (12.0-16.0); Immature Granulocytes % 1.2 %; Immature Granulocytes Absolute 0.14 #; Lymphocytes # 1.3 10*3/uL (1.4-4.0); Lymphocytes % 10.7 % (21.3-54.2); Mean Corpuscular HGB Conc 31.6 GM/DL (32-36); Mean Corpuscular Volume 99.3 FL (87-102); Mean Platelet Volume 10.4 FL (9.6-12.0); Monocytes % 14.8 % (1.7-12.7); NRBC # 0.04 10*3/uL; Neutrophils % 72.9 % (38.7-73.9); Platelet Count 204 T/CUMM (130-400); Red Blood Count 2.99 MC/CUMM (3.8-5.5); White Blood Count 12.2 T/CUMM (4-12)
[2018-08-28 04:52] LABS: Albumin 2.7 G/DL (3.4-5.0); Bilirubin,Total 1.2 MG/DL (0.2-1.0); Osmolality,Calculated 274.8 MOS/KG (273-304); Total Protein 5.4 G/DL (6.4-8.3)
[2018-08-28] MEDS: CALCIUM ACETATE 667 MG CAPSULE PO SCH ×3 (09:30→22:07)
[2018-08-28] MEDS: LOSARTAN 50 MG TABLET PO SCH (09:30)
[2018-08-28] MEDS: cloNIDine 0.1 MG TABLET PO SCH ×2 (09:30→22:06)
[2018-08-28] MEDS: METOPROLOL TARTRATE 50 MG TABLET PO SCH ×2 (09:30→22:06)
[2018-08-28] MEDS: PANTOPRAZOLE 40 MG TABLET PO SCH ×2 (09:30→22:06)
[2018-08-28] MEDS: amLODIPine 10 MG TABLET PO SCH (09:30)
[2018-08-28 12:15] LABS: Hemoglobin 8.7 GM/DL (12.0-16.0)
[2018-08-28] MEDS ORDERED: SODIUM CHLORIDE 0.9% 1,000 ML IV PRN (14:58)
[2018-08-28] MEDS: ERTAPENEM 500 MG in SODIUM CHLORIDE 0.9% 100 ML IV SCH (17:07)
[2018-08-28 17:58] LABS: Hematocrit 28.3 VOL% (35.7-47.0); Hemoglobin 8.9 GM/DL (12.0-16.0)
[2018-08-29] MEDS: LACTATED RINGERS 1,000 ML IV SCH ×2 (05:31→22:33)
[2018-08-29 05:49] LABS: Basophils # 0.1 10*3/uL (0.0-0.2); Basophils % 0.5 % (0.0-0.8); Eosinophils # 0.3 10*3/uL (0.0-0.87); Eosinophils % 2.3 % (0.00-10.9); Hematocrit 29.1 VOL% (35.7-47.0); Hemoglobin 9.3 GM/DL (12.0-16.0); Immature Granulocytes % 0.7 %; Lymphocytes # 1.8 10*3/uL (1.4-4.0); Lymphocytes % 13.1 % (21.3-54.2); Mean Platelet Volume 10.6 FL (9.6-12.0); Monocytes % 14.1 % (1.7-12.7); NRBC # 0.02 10*3/uL; Neutrophils % 69.3 % (38.7-73.9); Platelet Count 199 T/CUMM (130-400); Red Blood Count 2.94 MC/CUMM (3.8-5.5); Red Cell Distribution Width 14.6 % (9.3-17.3); White Blood Count 13.4 T/CUMM (4-12)
[2018-08-29 06:14] LABS: Albumin 2.9 G/DL (3.4-5.0); Bilirubin,Total 0.9 MG/DL (0.2-1.0); Calcium 9.5 MG/DL (8.5-10.1); Total Protein 5.5 G/DL (6.4-8.3)
[2018-08-29] MEDS: CALCIUM ACETATE 667 MG CAPSULE PO SCH ×3 (09:49→16:58)
[2018-08-29] MEDS: METOPROLOL TARTRATE 50 MG TABLET PO SCH ×2 (14:21→20:17)
[2018-08-29] MEDS: cloNIDine 0.1 MG TABLET PO SCH ×2 (14:21→20:17)
[2018-08-29] MEDS: PANTOPRAZOLE 40 MG TABLET PO SCH ×2 (14:21→20:17)
[2018-08-29] MEDS: amLODIPine 10 MG TABLET PO SCH (14:40)
[2018-08-29] MEDS: LOSARTAN 50 MG TABLET PO SCH (14:40)
[2018-08-29] MEDS: ERTAPENEM 500 MG in SODIUM CHLORIDE 0.9% 100 ML IV SCH (16:58)
[2018-08-30 05:42] LABS: Basophils # 0.1 10*3/uL (0.0-0.2); Basophils % 0.6 % (0.0-0.8); Eosinophils # 0.4 10*3/uL (0.0-0.87); Eosinophils % 3.9 % (0.00-10.9); Hematocrit 26.6 VOL% (35.7-47.0); Hemoglobin 8.3 GM/DL (12.0-16.0); Lymphocytes # 1.1 10*3/uL (1.4-4.0); Lymphocytes % 11.1 % (21.3-54.2); Mean Corpuscular HGB Conc 31.2 GM/DL (32-36); Mean Corpuscular Volume 100.8 FL (87-102); Mean Platelet Volume 9.8 FL (9.6-12.0); Monocytes % 14.7 % (1.7-12.7); NRBC # 0.02 10*3/uL; Neutrophils % 68.7 % (38.7-73.9); Platelet Count 199 T/CUMM (130-400); Red Blood Count 2.64 MC/CUMM (3.8-5.5); Red Cell Distribution Width 14.6 % (9.3-17.3); White Blood Count 9.8 T/CUMM (4-12)
[2018-08-30 06:04] LABS: Albumin 2.5 G/DL (3.4-5.0); Bilirubin,Total 0.7 MG/DL (0.2-1.0); Calcium 8.6 MG/DL (8.5-10.1); Osmolality,Calculated 279.3 MOS/KG (273-304); Total Protein 5.2 G/DL (6.4-8.3)
[2018-08-30] MEDS ORDERED: POTASSIUM CHLORIDE 20 MEQ TABLET PO PRN (07:22)
[2018-08-30] MEDS: CALCIUM ACETATE 667 MG CAPSULE PO SCH ×2 (08:18→12:09)
[2018-08-30] MEDS: PANTOPRAZOLE 40 MG TABLET PO SCH (08:18)
[2018-08-30] MEDS: amLODIPine 10 MG TABLET PO SCH (08:18)
[2018-08-30] MEDS: METOPROLOL TARTRATE 50 MG TABLET PO SCH (08:18)
[2018-08-30] MEDS: LOSARTAN 50 MG TABLET PO SCH (08:18)
[2018-08-30] MEDS: cloNIDine 0.1 MG TABLET PO SCH (08:19)
[2018-08-30] MEDS: LACTATED RINGERS 1,000 ML IV SCH (12:09)
[2018-08-30 12:50] VITALS: BP 149/88
== END 2018-08-30 17:13 | DRG 444 ==
LOC: N.ED 10:40 → N.EDINP 13:52 → SUATTDRO 13:52 → N.5E 14:54
PROVIDERS: ADMIT Internal Medicine; ATTEND Internal Medicine

== ENCOUNTER 2018-12-28 16:18 | Inpatient (IN) ==
[2018-12-28] MEDS ORDERED: METOPROLOL TARTRATE 5 MG/5 ML VIAL IV STA (16:53)
[2018-12-28 17:22] LABS: Basophils # 0.1 10*3/uL (0.0-0.2); Basophils % 0.8 % (0.0-0.8); Eosinophils # 0.1 10*3/uL (0.0-0.87); Eosinophils % 0.7 % (0.00-10.9); Hematocrit 38.8 VOL% (35.7-47.0); Hemoglobin 12.6 GM/DL (12.0-16.0); Immature Granulocytes % 0.5 %; Immature Granulocytes Absolute 0.04 #; Lymphocytes % 11.7 % (21.3-54.2); Mean Corpuscular HGB Conc 32.5 GM/DL (32-36); Mean Corpuscular Volume 94.2 FL (87-102); Mean Platelet Volume 10.1 FL (9.6-12.0); Monocytes % 12.7 % (1.7-12.7); Neutrophils % 73.6 % (38.7-73.9); Platelet Count 251 T/CUMM (130-400); Red Blood Count 4.12 MC/CUMM (3.8-5.5); Red Cell Distribution Width 16.3 % (9.3-17.3); White Blood Count 8.8 T/CUMM (4-12)
[2018-12-28 17:27] LABS: Albumin 3.1 G/DL (3.4-5.0); Bilirubin,Total 0.5 MG/DL (0.2-1.0); Calcium 8.6 MG/DL (8.5-10.1); Osmolality,Calculated 280.4 MOS/KG (273-304); Thyroid Stimulating Hormone 2.13 uIU/ml (0.358-3.74); Total Protein 6.4 G/DL (6.4-8.3)
[2018-12-28 17:31] LABS: INR 1.1; PT Patient Result 11.4 SECS (9.6-12.2)
[2018-12-28 17:37] LABS: Apearance,Urine Slightly Hazy (Clear); Bacteria,Urine Few /HPF (Few); Bilirubin,Urine Negative (Negative); Blood, Urine Small mg/dL (Negative); Glucose,Urine (UA) >=500 mg/dL (Negative); Ketones,Urine 5 mg/dL (Negative); Mucus,Urine Occasional /LPF (Occasional); Nitrite,Urine Negative (Negative); Protein,Urine >=500 MG/DL; RBC,Urine 8 /HPF (0-4); Squamous Epithelial Cell,Urine Occasional /HPF (0-10); Transitional Epi Cells,Urine Occasional /HPF (<1); Urine Color Yellow (Yellow); Urine Specific Gravity 1.003 (1.001-1.035); Urine Urobilinogen < 2.0 EU/DL (0.2-1.0); WBC,Urine 4 /HPF (0-6)
[2018-12-28] MEDS ORDERED: LABETALOL 20 MG/4 ML SYRINGE IV ONE (18:28)
[2018-12-28] MEDS ORDERED: ACETAMINOPHEN 325 MG TABLET PO PRN (18:31)
[2018-12-28] MEDS ORDERED: ONDANSETRON 4 MG/2 ML VIAL IV PRN (18:31)
[2018-12-28] MEDS ORDERED: POTASSIUM CHLORIDE 20 MEQ TABLET PO ONE (18:35)
[2018-12-28] MEDS: niCARdipine INJ 25 MG in SODIUM CHLORIDE 0.9% 240 ML IV PRN (20:18)
[2018-12-28 20:35] LABS: Troponin I 0.222 NG/ML (0.00-0.045)
[2018-12-28] MEDS ORDERED: carvediloL 25 MG TABLET PO SCH (21:00)
[2018-12-28] MEDS ORDERED: PANTOPRAZOLE 40 MG VIAL IV SCH (21:00)
[2018-12-28 23:19] LABS: Troponin I 0.336 NG/ML (0.00-0.045)
[2018-12-29] MEDS: niCARdipine INJ 25 MG in SODIUM CHLORIDE 0.9% 240 ML IV PRN ×2 (01:15→06:00)
[2018-12-29 04:21] LABS: Basophils # 0.1 10*3/uL (0.0-0.2); Basophils % 0.8 % (0.0-0.8); Eosinophils # 0.1 10*3/uL (0.0-0.87); Hematocrit 33.9 VOL% (35.7-47.0); Hemoglobin 11.1 GM/DL (12.0-16.0); Immature Granulocytes % 0.5 %; Immature Granulocytes Absolute 0.04 #; Lymphocytes # 1.4 10*3/uL (1.4-4.0); Lymphocytes % 16.1 % (21.3-54.2); Mean Corpuscular HGB Conc 32.7 GM/DL (32-36); Mean Corpuscular Volume 94.2 FL (87-102); Mean Platelet Volume 10.2 FL (9.6-12.0); Monocytes % 13.1 % (1.7-12.7); Neutrophils % 68.5 % (38.7-73.9); Platelet Count 238 T/CUMM (130-400); Red Cell Distribution Width 16.2 % (9.3-17.3); White Blood Count 8.7 T/CUMM (4-12)
[2018-12-29 04:40] LABS: Calcium 9.3 MG/DL (8.5-10.1); Osmolality,Calculated 280.5 MOS/KG (273-304)
[2018-12-29] MEDS: amLODIPine 10 MG TABLET PO SCH (08:14)
[2018-12-29] MEDS: cloNIDine 0.1 MG TABLET PO SCH ×2 (08:14→21:47)
[2018-12-29] MEDS: METOPROLOL TARTRATE 50 MG TABLET PO SCH ×2 (08:14→21:47)
[2018-12-29] MEDS: VALSARTAN 160 MG TABLET PO SCH (08:15)
[2018-12-29] MEDS: MEGESTROL 40 MG TABLET PO SCH ×2 (08:15→21:47)
[2018-12-29] MEDS: PANTOPRAZOLE 40 MG TABLET PO SCH ×2 (08:15→21:47)
[2018-12-29] MEDS: hydrALAZINE 20 MG/1 ML VIAL IV PRN (14:02)
[2018-12-30 05:56] LABS: Basophils # 0.1 10*3/uL (0.0-0.2); Basophils % 1.3 % (0.0-0.8); Eosinophils # 0.3 10*3/uL (0.0-0.87); Eosinophils % 3.9 % (0.00-10.9); Hematocrit 35.4 VOL% (35.7-47.0); Hemoglobin 11.2 GM/DL (12.0-16.0); Immature Granulocytes % 0.3 %; Immature Granulocytes Absolute 0.02 #; Lymphocytes # 1.7 10*3/uL (1.4-4.0); Lymphocytes % 23.7 % (21.3-54.2); Mean Corpuscular HGB Conc 31.6 GM/DL (32-36); Mean Corpuscular Volume 95.4 FL (87-102); Mean Platelet Volume 9.5 FL (9.6-12.0); Monocytes % 12.5 % (1.7-12.7); Neutrophils % 58.3 % (38.7-73.9); Platelet Count 204 T/CUMM (130-400); Red Blood Count 3.71 MC/CUMM (3.8-5.5); Red Cell Distribution Width 16.7 % (9.3-17.3)
[2018-12-30 06:12] LABS: Calcium 9.1 MG/DL (8.5-10.1); Osmolality,Calculated 283.5 MOS/KG (273-304)
[2018-12-30] MEDS: hydrALAZINE 20 MG/1 ML VIAL IV PRN (06:37)
[2018-12-30] MEDS: PANTOPRAZOLE 40 MG TABLET PO SCH ×2 (09:13→21:42)
[2018-12-30] MEDS: VALSARTAN 160 MG TABLET PO SCH (09:13)
[2018-12-30] MEDS: METOPROLOL TARTRATE 50 MG TABLET PO SCH ×2 (09:14→21:42)
[2018-12-30] MEDS: MEGESTROL 40 MG TABLET PO SCH ×2 (09:14→21:42)
[2018-12-30] MEDS: amLODIPine 10 MG TABLET PO SCH (09:14)
[2018-12-30] MEDS: cloNIDine 0.1 MG TABLET PO SCH ×2 (09:14→21:42)
[2018-12-30] MEDS ORDERED: hydrALAZINE 25 MG TABLET PO SCH (15:00)
[2018-12-31 05:25] LABS: Basophils # 0.1 10*3/uL (0.0-0.2); Basophils % 0.7 % (0.0-0.8); Eosinophils # 0.3 10*3/uL (0.0-0.87); Eosinophils % 3.9 % (0.00-10.9); Hemoglobin 10.9 GM/DL (12.0-16.0); Immature Granulocytes % 0.5 %; Immature Granulocytes Absolute 0.04 #; Lymphocytes # 1.9 10*3/uL (1.4-4.0); Lymphocytes % 21.8 % (21.3-54.2); Mean Corpuscular HGB Conc 32.1 GM/DL (32-36); Mean Corpuscular Volume 93.9 FL (87-102); Mean Platelet Volume 10.2 FL (9.6-12.0); Monocytes % 13.5 % (1.7-12.7); Neutrophils % 59.6 % (38.7-73.9); Platelet Count 211 T/CUMM (130-400); Red Blood Count 3.62 MC/CUMM (3.8-5.5); Red Cell Distribution Width 16.8 % (9.3-17.3); White Blood Count 8.5 T/CUMM (4-12)
[2018-12-31 06:04] LABS: Calcium 9.5 MG/DL (8.5-10.1); Osmolality,Calculated 293.3 MOS/KG (273-304)
[2018-12-31] MEDS ORDERED: PROPOFOL 200 MG/20 ML VIAL IV ONE (09:00)
[2018-12-31] MEDS ORDERED: LIDOCAINE 100 MG/5 ML SYRINGE ONE (09:00)
[2018-12-31] MEDS: METOPROLOL TARTRATE 50 MG TABLET PO SCH ×2 (09:10→20:27)
[2018-12-31] MEDS: VALSARTAN 160 MG TABLET PO SCH (09:10)
[2018-12-31] MEDS: amLODIPine 10 MG TABLET PO SCH (09:10)
[2018-12-31] MEDS: cloNIDine 0.1 MG TABLET PO SCH ×2 (09:10→20:28)
[2018-12-31] MEDS: MEGESTROL 40 MG TABLET PO SCH ×2 (09:11→20:27)
[2018-12-31] MEDS: PANTOPRAZOLE 40 MG TABLET PO SCH ×2 (09:12→20:27)
[2018-12-31] MEDS ORDERED: HEPARIN 10,000 UNIT/10 ML VIAL IV PRN (16:01)
[2019-01-01 05:43] LABS: Basophils # 0.1 10*3/uL (0.0-0.2); Basophils % 1.1 % (0.0-0.8); Eosinophils # 0.3 10*3/uL (0.0-0.87); Eosinophils % 4.3 % (0.00-10.9); Hematocrit 33.7 VOL% (35.7-47.0); Immature Granulocytes % 0.5 %; Immature Granulocytes Absolute 0.03 #; Lymphocytes # 1.6 10*3/uL (1.4-4.0); Lymphocytes % 25.2 % (21.3-54.2); Mean Corpuscular HGB Conc 32.6 GM/DL (32-36); Mean Corpuscular Volume 94.7 FL (87-102); Mean Platelet Volume 10.4 FL (9.6-12.0); Monocytes % 14.7 % (1.7-12.7); Neutrophils % 54.2 % (38.7-73.9); Platelet Count 166 T/CUMM (130-400); Red Blood Count 3.56 MC/CUMM (3.8-5.5); White Blood Count 6.5 T/CUMM (4-12)
[2019-01-01 06:31] LABS: Calcium 8.8 MG/DL (8.5-10.1); Osmolality,Calculated 283.5 MOS/KG (273-304)
[2019-01-01] MEDS: MEGESTROL 40 MG TABLET PO SCH (09:59)
[2019-01-01] MEDS: amLODIPine 10 MG TABLET PO SCH (09:59)
[2019-01-01] MEDS: METOPROLOL TARTRATE 50 MG TABLET PO SCH (09:59)
[2019-01-01] MEDS: VALSARTAN 160 MG TABLET PO SCH (09:59)
[2019-01-01] MEDS: PANTOPRAZOLE 40 MG TABLET PO SCH (09:59)
[2019-01-01] MEDS: cloNIDine 0.1 MG TABLET PO SCH (10:00)
[2019-01-01 12:44] VITALS: BP 161/84
== END 2019-01-01 13:45 | disposition home health service (06) | DRG 304 ==
LOC: EDBD → EDUNIT# → N.ED 16:18 → N.EDINP 18:28 → SUATTDRO 18:28 → N.ICU 19:13 → N.5E 12-29 15:03
PROVIDERS: ADMIT Internal Medicine Geriatric Medicine; ATTEND Internal Medicine

== ENCOUNTER 2019-03-12 10:16 | Inpatient (IN) ==
[2019-03-12 11:09] LABS: Basophils # 0.1 10*3/uL (0.0-0.2); Basophils % 0.9 % (0.0-0.8); Eosinophils # 0.1 10*3/uL (0.0-0.87); Eosinophils % 1.1 % (0.00-10.9); Hematocrit 39.3 VOL% (35.7-47.0); Hemoglobin 12.9 GM/DL (12.0-16.0); Immature Granulocytes % 0.4 %; Immature Granulocytes Absolute 0.03 #; Lymphocytes # 0.8 10*3/uL (1.4-4.0); Lymphocytes % 9.8 % (21.3-54.2); Mean Corpuscular HGB Conc 32.8 GM/DL (32-36); Mean Corpuscular Volume 94.9 FL (87-102); Mean Platelet Volume 9.8 FL (9.6-12.0); Monocytes % 6.2 % (1.7-12.7); Neutrophils % 81.6 % (38.7-73.9); Platelet Count 211 T/CUMM (130-400); Red Blood Count 4.14 MC/CUMM (3.8-5.5); Red Cell Distribution Width 15.2 % (9.3-17.3); White Blood Count 8.6 T/CUMM (4-12)
[2019-03-12 11:28] LABS: Albumin 3.3 G/DL (3.4-5.0); Bilirubin,Total 0.4 MG/DL (0.2-1.0); Calcium 9.1 MG/DL (8.5-10.1); Osmolality,Calculated 285.8 MOS/KG (273-304); Total Protein 6.8 G/DL (6.4-8.3)
[2019-03-12] MEDS ORDERED: ACETAMINOPHEN 500 MG TABLET PO STA (11:39)
[2019-03-12] MEDS ORDERED: ACETAMINOPHEN 500 MG TABLET ONE (11:41)
[2019-03-12] MEDS ORDERED: ACETAMINOPHEN 325 MG TABLET PO PRN (15:24)
[2019-03-12] MEDS: hydrALAZINE 20 MG/1 ML VIAL IV PRN (18:06)
[2019-03-12] MEDS: cefTRIAXone 1,000 MG in SYRINGE 1 EACH IV SCH (18:09)
[2019-03-12] MEDS: Sucroferric Oxyhydroxide [Velphoro] 500 MG PO SCH (18:27)
[2019-03-12] MEDS: MORPHINE 4 MG/1 ML VIAL IV PRN (19:31)
[2019-03-12] MEDS: cloNIDine 0.1 MG TABLET PO SCH (20:24)
[2019-03-12] MEDS: PANTOPRAZOLE 40 MG TABLET PO SCH (20:24)
[2019-03-12] MEDS: METOPROLOL TARTRATE 50 MG TABLET PO SCH (20:24)
[2019-03-12] MEDS: MEGESTROL 40 MG TABLET PO SCH (20:24)
[2019-03-12] MEDS: ZALEPLON 5 MG CAPSULE PO PRN (22:45)
[2019-03-13] MEDS: ONDANSETRON 4 MG/2 ML VIAL IV PRN (04:53)
[2019-03-13 05:33] LABS: Basophils # 0.1 10*3/uL (0.0-0.2); Basophils % 1.9 % (0.0-0.8); Eosinophils # 0.2 10*3/uL (0.0-0.87); Eosinophils % 2.2 % (0.00-10.9); Hematocrit 37.1 VOL% (35.7-47.0); Immature Granulocytes % 0.7 %; Immature Granulocytes Absolute 0.05 #; Lymphocytes # 1.6 10*3/uL (1.4-4.0); Mean Corpuscular HGB Conc 32.3 GM/DL (32-36); Mean Corpuscular Volume 94.9 FL (87-102); Mean Platelet Volume 9.2 FL (9.6-12.0); Neutrophils % 60.2 % (38.7-73.9); Platelet Count 189 T/CUMM (130-400); Red Blood Count 3.91 MC/CUMM (3.8-5.5); Red Cell Distribution Width 15.3 % (9.3-17.3); White Blood Count 7.4 T/CUMM (4-12)
[2019-03-13 05:45] LABS: Bilirubin,Total 0.7 MG/DL (0.2-1.0); Osmolality,Calculated 284.2 MOS/KG (273-304); Total Protein 6.1 G/DL (6.4-8.3)
[2019-03-13] MEDS: VALSARTAN 160 MG TABLET PO SCH (10:58)
[2019-03-13] MEDS: cefTRIAXone 1,000 MG in SYRINGE 1 EACH IV SCH (10:58)
[2019-03-13] MEDS: PANTOPRAZOLE 40 MG TABLET PO SCH ×2 (10:58→21:31)
[2019-03-13] MEDS: amLODIPine 10 MG TABLET PO SCH (10:59)
[2019-03-13] MEDS: METOPROLOL TARTRATE 50 MG TABLET PO SCH ×2 (10:59→21:31)
[2019-03-13] MEDS: MEGESTROL 40 MG TABLET PO SCH ×2 (10:59→21:31)
[2019-03-13] MEDS: cloNIDine 0.1 MG TABLET PO SCH ×2 (10:59→21:31)
[2019-03-13] MEDS: Sucroferric Oxyhydroxide [Velphoro] 500 MG PO SCH ×3 (13:56→18:52)
[2019-03-13] MEDS ORDERED: ALTEPLASE 2 MG VIAL INTRACATH ONE (17:00)
[2019-03-13] MEDS: MORPHINE 4 MG/1 ML VIAL IV PRN (21:28)
[2019-03-13] MEDS: ZALEPLON 5 MG CAPSULE PO PRN (23:49)
[2019-03-14] MEDS: ONDANSETRON 4 MG/2 ML VIAL IV PRN (05:28)
[2019-03-14 05:35] LABS: Basophils # 0.2 10*3/uL (0.0-0.2); Basophils % 1.6 % (0.0-0.8); Eosinophils # 0.3 10*3/uL (0.0-0.87); Eosinophils % 3.4 % (0.00-10.9); Hematocrit 39.1 VOL% (35.7-47.0); Hemoglobin 12.5 GM/DL (12.0-16.0); Immature Granulocytes % 0.5 %; Immature Granulocytes Absolute 0.05 #; Lymphocytes # 2.8 10*3/uL (1.4-4.0); Lymphocytes % 28.6 % (21.3-54.2); Mean Corpuscular Volume 95.8 FL (87-102); Mean Platelet Volume 9.9 FL (9.6-12.0); Monocytes % 12.8 % (1.7-12.7); Neutrophils % 53.1 % (38.7-73.9); Platelet Count 199 T/CUMM (130-400); Red Blood Count 4.08 MC/CUMM (3.8-5.5); Red Cell Distribution Width 14.8 % (9.3-17.3); White Blood Count 9.9 T/CUMM (4-12)
[2019-03-14 05:52] LABS: Albumin 3.2 G/DL (3.4-5.0); Bilirubin,Total 0.7 MG/DL (0.2-1.0); Calcium 8.9 MG/DL (8.5-10.1); Osmolality,Calculated 291.8 MOS/KG (273-304); Total Protein 6.5 G/DL (6.4-8.3)
[2019-03-14] MEDS ORDERED: LIDOCAINE 1%/EPI INJ 20 ML VIAL ONE (10:23)
[2019-03-14] MEDS ORDERED: BUPIVACAINE MPF 0.25% 30 ML VIAL ONE (10:23)
[2019-03-14] MEDS ORDERED: HEPARIN 5,000 UNIT/1 ML VIAL ONE (10:23)
[2019-03-14] MEDS ORDERED: EPOETIN ALFA 10,000 UNIT/1 ML VIAL IV PRN (10:31)
[2019-03-14] MEDS ORDERED: SODIUM CHLORIDE 0.9% 250 ML IV SCH (11:30)
[2019-03-14] MEDS ORDERED: ceFAZolin 1,000 MG VIAL ONE (11:52)
[2019-03-14] MEDS ORDERED: TISSUE ADHESIVE 1 EACH APPLICATOR TOP ONE (12:10)
[2019-03-14] MEDS ORDERED: hydrALAZINE 20 MG/1 ML VIAL ONE (12:22)
[2019-03-14] MEDS ORDERED: KETAMINE 500 MG/10 ML VIAL ONE (12:25)
[2019-03-14] MEDS ORDERED: LIDOCAINE 2% 5 ML VIAL ONE (12:25)
[2019-03-14] MEDS ORDERED: PROPOFOL 200 MG/20 ML VIAL IV ONE (12:25)
[2019-03-14] MEDS ORDERED: fentaNYL 100 MCG/2 ML VIAL ONE (12:25)
[2019-03-14] MEDS ORDERED: hydrALAZINE 20 MG/1 ML VIAL IV ONE (12:29)
[2019-03-14] MEDS: Sucroferric Oxyhydroxide [Velphoro] 500 MG PO SCH ×2 (14:46→18:10)
[2019-03-14] MEDS ORDERED: HEPARIN 10,000 UNIT/10 ML VIAL IV PRN (15:03)
[2019-03-14] MEDS: cefTRIAXone 1,000 MG in SYRINGE 1 EACH IV SCH (18:08)
[2019-03-14] MEDS: amLODIPine 10 MG TABLET PO SCH (18:09)
[2019-03-14] MEDS: METOPROLOL TARTRATE 50 MG TABLET PO SCH ×2 (18:09→22:14)
[2019-03-14] MEDS: cloNIDine 0.1 MG TABLET PO SCH ×2 (18:09→22:14)
[2019-03-14] MEDS: MEGESTROL 40 MG TABLET PO SCH ×2 (18:09→22:14)
[2019-03-14] MEDS: PANTOPRAZOLE 40 MG TABLET PO SCH ×2 (18:10→22:14)
[2019-03-14] MEDS: VALSARTAN 160 MG TABLET PO SCH (18:10)
[2019-03-14] MEDS: MORPHINE 4 MG/1 ML VIAL IV PRN (20:26)
[2019-03-14] MEDS: ZALEPLON 5 MG CAPSULE PO PRN (22:14)
[2019-03-15] MEDS: hydrALAZINE 20 MG/1 ML VIAL IV PRN (00:50)
[2019-03-15] MEDS: ONDANSETRON 4 MG/2 ML VIAL IV PRN ×2 (04:47→20:38)
[2019-03-15 05:17] LABS: Basophils # 0.1 10*3/uL (0.0-0.2); Eosinophils # 0.2 10*3/uL (0.0-0.87); Eosinophils % 2.3 % (0.00-10.9); Hematocrit 39.1 VOL% (35.7-47.0); Hemoglobin 12.7 GM/DL (12.0-16.0); Immature Granulocytes % 0.3 %; Immature Granulocytes Absolute 0.03 #; Lymphocytes % 20.7 % (21.3-54.2); Mean Corpuscular HGB Conc 32.5 GM/DL (32-36); Mean Corpuscular Volume 94.7 FL (87-102); Mean Platelet Volume 10.3 FL (9.6-12.0); Monocytes % 11.5 % (1.7-12.7); Neutrophils % 64.2 % (38.7-73.9); Platelet Count 187 T/CUMM (130-400); Red Blood Count 4.13 MC/CUMM (3.8-5.5); Red Cell Distribution Width 14.6 % (9.3-17.3); White Blood Count 9.8 T/CUMM (4-12)
[2019-03-15 05:52] LABS: Bilirubin,Total 0.5 MG/DL (0.2-1.0); Calcium 9.4 MG/DL (8.5-10.1); Osmolality,Calculated 272.1 MOS/KG (273-304); Total Protein 6.5 G/DL (6.4-8.3)
[2019-03-15] MEDS: PANTOPRAZOLE 40 MG TABLET PO SCH ×2 (12:59→20:38)
[2019-03-15] MEDS: MEGESTROL 40 MG TABLET PO SCH ×2 (12:59→20:38)
[2019-03-15] MEDS: cefTRIAXone 1,000 MG in SYRINGE 1 EACH IV SCH (12:59)
[2019-03-15] MEDS: METOPROLOL TARTRATE 50 MG TABLET PO SCH ×2 (13:06→20:38)
[2019-03-15] MEDS: cloNIDine 0.1 MG TABLET PO SCH ×2 (13:06→20:38)
[2019-03-15] MEDS: Sucroferric Oxyhydroxide [Velphoro] 500 MG PO SCH ×2 (13:07→17:04)
[2019-03-15] MEDS: amLODIPine 10 MG TABLET PO SCH (14:51)
[2019-03-15] MEDS: VALSARTAN 160 MG TABLET PO SCH (16:11)
[2019-03-15] MEDS: MORPHINE 4 MG/1 ML VIAL IV PRN (20:42)
[2019-03-15] MEDS: ZALEPLON 5 MG CAPSULE PO PRN (20:46)
[2019-03-16] MEDS: VALSARTAN 160 MG TABLET PO SCH (08:33)
[2019-03-16] MEDS: METOPROLOL TARTRATE 50 MG TABLET PO SCH ×2 (08:33→20:30)
[2019-03-16] MEDS: cefTRIAXone 1,000 MG in SYRINGE 1 EACH IV SCH (08:34)
[2019-03-16] MEDS: PANTOPRAZOLE 40 MG TABLET PO SCH ×2 (08:34→20:30)
[2019-03-16] MEDS: MEGESTROL 40 MG TABLET PO SCH ×2 (08:34→20:30)
[2019-03-16] MEDS: cloNIDine 0.1 MG TABLET PO SCH ×2 (08:34→20:30)
[2019-03-16] MEDS: amLODIPine 10 MG TABLET PO SCH (08:34)
[2019-03-16] MEDS ORDERED: cefOXitin 2,000 MG in SYRINGE 1 EACH IV ONE (08:54)
[2019-03-16] MEDS: Sucroferric Oxyhydroxide [Velphoro] 500 MG PO SCH ×3 (12:02→18:15)
[2019-03-16] MEDS: ZALEPLON 5 MG CAPSULE PO PRN (20:30)
[2019-03-16] MEDS: MORPHINE 4 MG/1 ML VIAL IV PRN (20:30)
[2019-03-17] MEDS: ONDANSETRON 4 MG/2 ML VIAL IV PRN ×2 (05:52→20:15)
[2019-03-17] MEDS ORDERED: TISSUE ADHESIVE 1 EACH APPLICATOR TOP ONE (06:41)
[2019-03-17] MEDS ORDERED: cefOXitin 2,000 MG in SYRINGE 1 EACH IV ONE (07:00)
[2019-03-17] MEDS ORDERED: BUPIVACAINE MPF 0.25% 30 ML VIAL ONE (07:30)
[2019-03-17] MEDS ORDERED: LIDOCAINE 1%/EPI INJ 20 ML VIAL ONE (07:30)
[2019-03-17] MEDS ORDERED: MEPERIDINE 25 MG/1 ML VIAL IV PRN (07:39)
[2019-03-17] MEDS ORDERED: ONDANSETRON 4 MG/2 ML VIAL IV PRN (07:39)
[2019-03-17] MEDS ORDERED: diphenhydrAMINE 50 MG/1 ML VIAL IV PRN (07:39)
[2019-03-17] MEDS ORDERED: PROMETHAZINE INJ 25 MG in SODIUM CHLORIDE 0.9% 50 ML IV PRN (07:39)
[2019-03-17] MEDS ORDERED: PROPOFOL 200 MG/20 ML VIAL IV ONE (08:58)
[2019-03-17] MEDS ORDERED: LIDOCAINE 2% 5 ML VIAL ONE (08:58)
[2019-03-17] MEDS ORDERED: fentaNYL 100 MCG/2 ML VIAL ONE (08:58)
[2019-03-17] MEDS ORDERED: DEXAMETHASONE 4 MG/1 ML VIAL ONE (08:58)
[2019-03-17] MEDS ORDERED: ROCURONIUM 100 MG/10 ML VIAL IV ONE (08:58)
[2019-03-17] MEDS ORDERED: SODIUM CHLORIDE 0.9% 250 ML IV ONE (08:58)
[2019-03-17] MEDS ORDERED: PHENYLEPHRINE 1 MG/10 ML SYRINGE IV ONE (08:58)
[2019-03-17] MEDS ORDERED: ONDANSETRON 4 MG/2 ML VIAL ONE ×2 (08:58→09:11)
[2019-03-17] MEDS ORDERED: SEVOFLURANE 1 UNIT/15 MINUTE INH ONE (08:58)
[2019-03-17] MEDS ORDERED: ETOMIDATE 40 MG/20 ML VIAL IV ONE (08:58)
[2019-03-17] MEDS ORDERED: SODIUM CHLORIDE 0.9% 100 ML IV ONE (08:58)
[2019-03-17] MEDS ORDERED: MEPERIDINE 25 MG/1 ML VIAL ONE (09:11)
[2019-03-17] MEDS ORDERED: PROMETHAZINE 25 MG/1 ML VIAL ONE (09:19)
[2019-03-17] MEDS: METOPROLOL TARTRATE 50 MG TABLET PO SCH ×2 (11:35→20:28)
[2019-03-17] MEDS: cloNIDine 0.1 MG TABLET PO SCH ×2 (11:35→20:28)
[2019-03-17] MEDS: VALSARTAN 160 MG TABLET PO SCH (11:39)
[2019-03-17] MEDS: amLODIPine 10 MG TABLET PO SCH (11:39)
[2019-03-17] MEDS: MEGESTROL 40 MG TABLET PO SCH ×2 (11:40→20:28)
[2019-03-17] MEDS: cefTRIAXone 1,000 MG in SYRINGE 1 EACH IV SCH (11:40)
[2019-03-17] MEDS: PANTOPRAZOLE 40 MG TABLET PO SCH ×2 (11:40→20:28)
[2019-03-17] MEDS: Sucroferric Oxyhydroxide [Velphoro] 500 MG PO SCH ×3 (11:48→19:59)
[2019-03-17] MEDS: MORPHINE 4 MG/1 ML VIAL IV PRN (20:17)
[2019-03-17] MEDS: ZALEPLON 5 MG CAPSULE PO PRN (20:28)
[2019-03-18 05:17] LABS: Basophils # 0.1 10*3/uL (0.0-0.2); Basophils % 0.4 % (0.0-0.8); Eosinophils # 0.1 10*3/uL (0.0-0.87); Eosinophils % 0.4 % (0.00-10.9); Hematocrit 32.5 VOL% (35.7-47.0); Hemoglobin 10.3 GM/DL (12.0-16.0); Immature Granulocytes % 0.4 %; Immature Granulocytes Absolute 0.05 #; Lymphocytes # 1.4 10*3/uL (1.4-4.0); Lymphocytes % 11.8 % (21.3-54.2); Mean Corpuscular HGB Conc 31.7 GM/DL (32-36); Mean Platelet Volume 10.2 FL (9.6-12.0); Monocytes % 16.3 % (1.7-12.7); Neutrophils % 70.7 % (38.7-73.9); Platelet Count 248 T/CUMM (130-400); Red Blood Count 3.35 MC/CUMM (3.8-5.5); Red Cell Distribution Width 14.9 % (9.3-17.3); White Blood Count 11.7 T/CUMM (4-12)
[2019-03-18 05:43] LABS: Eosinophils 2 % (0-10); Hypochromasia 1+; Lymphocytes 6 % (20-55); Platelet Estimate Adequate; Segmented Neutrophils 79 % (50-85); Total Cells Counted 100
[2019-03-18 05:49] LABS: Alanine Aminotransferase < 9 U/L (13-56); Albumin 2.5 G/DL (3.4-5.0); Alkaline Phosphatase 62 U/L (45-117); Aspartate Amino Transferase 15 U/L (0-37); Blood Urea Nitrogen 38 MG/DL (7-18); Calcium 8.8 MG/DL (8.5-10.1); Estimated Glom Filtration Rate 3 ML/MIN; Glucose 108 MG/DL (74-106); Osmolality,Calculated 282.8 MOS/KG (273-304); Total Protein 5.8 G/DL (6.4-8.3)
[2019-03-18] MEDS: PANTOPRAZOLE 40 MG TABLET PO SCH (10:06)
[2019-03-18] MEDS: METOPROLOL TARTRATE 50 MG TABLET PO SCH (10:06)
[2019-03-18] MEDS: MEGESTROL 40 MG TABLET PO SCH (10:06)
[2019-03-18] MEDS: cloNIDine 0.1 MG TABLET PO SCH (10:06)
[2019-03-18] MEDS: Sucroferric Oxyhydroxide [Velphoro] 500 MG PO SCH ×2 (10:06→14:33)
[2019-03-18] MEDS: amLODIPine 10 MG TABLET PO SCH (10:07)
[2019-03-18] MEDS: VALSARTAN 160 MG TABLET PO SCH (10:12)
[2019-03-18] MEDS: cefTRIAXone 1,000 MG in SYRINGE 1 EACH IV SCH (10:15)
[2019-03-18 11:51] VITALS: BP 129/54
== END 2019-03-18 15:38 | disposition home health service (06) | DRG 417 ==
LOC: N.ED 10:16 → SUATTDRO 15:24 → N.EDINP 15:24 → N.2E 16:20
PROVIDERS: ADMIT Emergency Medicine; ATTEND Hospitalist

== ENCOUNTER 2019-10-03 03:16 | Inpatient (IN) ==
[2019-10-03] MEDS ORDERED: MORPHINE 4 MG/1 ML VIAL IV STA (03:38)
[2019-10-03] MEDS ORDERED: NITROGLYCERIN 2% OINT 1 INCH/GM PACK TOP STA (03:38)
[2019-10-03] MEDS ORDERED: ONDANSETRON 4 MG/2 ML VIAL IV STA (03:38)
[2019-10-03] MEDS ORDERED: methylPREDNISolone SOD SUC 125 MG/2 ML VIAL IV STA (03:38)
[2019-10-03] MEDS ORDERED: hydrALAZINE 20 MG/1 ML VIAL IV STA (03:38)
[2019-10-03] MEDS ORDERED: ALBUTEROL NEB SOLN 5 MG/ML 20 ML/BOTTLE CONT NEB SCH (04:00)
[2019-10-03] MEDS: hydrALAZINE 20 MG/1 ML VIAL IV STA ×2 (04:08→07:32)
[2019-10-03 04:11] LABS: Basophils # 0.1 10*3/uL (0.0-0.2); Basophils % 0.8 % (0.0-0.8); Eosinophils % 0.2 % (0.00-10.9); Hematocrit 35.7 VOL% (35.7-47.0); Hemoglobin 11.3 GM/DL (12.0-16.0); Immature Granulocytes % 0.8 %; Immature Granulocytes Absolute 0.12 #; Lymphocytes # 0.6 10*3/uL (1.4-4.0); Lymphocytes % 4.3 % (21.3-54.2); Mean Corpuscular HGB Conc 31.7 GM/DL (32-36); Mean Corpuscular Volume 102.9 FL (87-102); Mean Platelet Volume 8.8 FL (9.6-12.0); Monocytes % 6.9 % (1.7-12.7); NRBC # 0.04 10*3/uL; Platelet Count 220 T/CUMM (130-400); Red Blood Count 3.47 MC/CUMM (3.8-5.5); Red Cell Distribution Width 15.8 % (9.3-17.3); White Blood Count 14.5 T/CUMM (4-12)
[2019-10-03 04:30] LABS: Albumin 3.1 G/DL (3.4-5.0); Bilirubin,Total 0.5 MG/DL (0.2-1.0); Calcium 9.5 MG/DL (8.5-10.1); Osmolality,Calculated 274.8 MOS/KG (273-304)
[2019-10-03] MEDS ORDERED: PIPERACILLIN/TAZOBACTAM 3,375 MG in SODIUM CHLORIDE 0.9% 100 ML IV STA (04:30)
[2019-10-03 04:46] LABS: PT Patient Result 10.9 SECS (9.8-11.9)
[2019-10-03 04:47] LABS: Eosinophils 2 % (0-10); Lymphocytes 4 % (20-55); Nucleated Red Blood Cells 2 (0-5); Segmented Neutrophils 90 % (50-85); Total Cells Counted 100
[2019-10-03 04:48] LABS: Hypochromasia 1+; Ovalocytes Slight; Platelet Estimate Adequate
[2019-10-03 04:49] LABS: Macrocytosis Slight
[2019-10-03 05:18] LABS: Ferritin 1088.5 ng/ml (8-252)
[2019-10-03] MEDS ORDERED: diphenhydrAMINE CAP 25 MG CAPSULE PO PRN (06:10)
[2019-10-03] MEDS ORDERED: guaiFENesin/DM ER 600-30 MG TABLET PO PRN (06:10)
[2019-10-03] MEDS ORDERED: ONDANSETRON 4 MG/2 ML VIAL IV PRN (06:10)
[2019-10-03] MEDS ORDERED: NICOTINE 21 MG/24 HR PATCH TRANSDERM PRN (06:10)
[2019-10-03] MEDS ORDERED: GLUCAGON 1 MG VIAL IM PRN (06:10)
[2019-10-03] MEDS ORDERED: ACETAMINOPHEN 325 MG TABLET PO PRN (06:10)
[2019-10-03] MEDS ORDERED: MORPHINE 4 MG/1 ML VIAL IV PRN (06:10)
[2019-10-03] MEDS ORDERED: DEXTROSE 50% 25 GM/50 ML VIAL IV PRN (06:10)
[2019-10-03] MEDS ORDERED: ENOXAPARIN 60 MG/0.6 ML SYRINGE SUBCUT ONE (07:02)
[2019-10-03] MEDS ORDERED: AZITHROMYCIN INJ 500 MG in SODIUM CHLORIDE 0.9% 250 ML IV SCH (07:30)
[2019-10-03] MEDS: PIPERACILLIN/TAZOBACTAM 3,375 MG in SODIUM CHLORIDE 0.9% 100 ML IV SCH (12:25)
[2019-10-03 21:51] LABS: Hepatitis B Surface Ag Quant < 0.10 Index; Hepatitis B Surface Ag Result Negative (Negative); Hepatitis C Virus Ab Quant 0.06 Index; Hepatitis C Virus Ab Result Negative (Negative)
[2019-10-04 06:27] LABS: Basophils # 0.1 10*3/uL (0.0-0.2); Basophils % 0.4 % (0.0-0.8); Eosinophils % 0.1 % (0.00-10.9); Hematocrit 32.6 VOL% (35.7-47.0); Hemoglobin 10.4 GM/DL (12.0-16.0); Immature Granulocytes % 0.5 %; Immature Granulocytes Absolute 0.08 #; Lymphocytes # 1.1 10*3/uL (1.4-4.0); Lymphocytes % 7.4 % (21.3-54.2); Mean Corpuscular HGB Conc 31.9 GM/DL (32-36); Mean Corpuscular Volume 103.8 FL (87-102); Mean Platelet Volume 9.3 FL (9.6-12.0); NRBC # 0.07 10*3/uL; Neutrophils % 81.6 % (38.7-73.9); Platelet Count 216 T/CUMM (130-400); Red Blood Count 3.14 MC/CUMM (3.8-5.5); Red Cell Distribution Width 16.2 % (9.3-17.3); White Blood Count 15.2 T/CUMM (4-12)
[2019-10-04 07:01] LABS: Albumin 2.8 G/DL (3.4-5.0); Bilirubin,Total 0.5 MG/DL (0.2-1.0); Calcium 9.4 MG/DL (8.5-10.1); Osmolality,Calculated 276.1 MOS/KG (273-304); Total Protein 5.6 G/DL (6.4-8.3)
[2019-10-04] MEDS: AZITHROMYCIN 250 MG TABLET PO SCH (09:09)
[2019-10-04] MEDS: DILTIAZEM 30 MG TABLET PO SCH ×3 (09:09→20:20)
[2019-10-04] MEDS: PIPERACILLIN/TAZOBACTAM 3,375 MG in SODIUM CHLORIDE 0.9% 100 ML IV SCH ×2 (09:09→20:18)
[2019-10-04] MEDS: cloNIDine 0.1 MG TABLET PO SCH (20:20)
[2019-10-04] MEDS: METOPROLOL TARTRATE 50 MG TABLET PO SCH (20:20)
[2019-10-05] MEDS: hydrALAZINE 20 MG/1 ML VIAL IV PRN (01:07)
[2019-10-05 07:50] LABS: Basophils # 0.1 10*3/uL (0.0-0.2); Basophils % 0.6 % (0.0-0.8); Eosinophils % 0.2 % (0.00-10.9); Hematocrit 33.7 VOL% (35.7-47.0); Hemoglobin 10.8 GM/DL (12.0-16.0); Immature Granulocytes % 0.5 %; Immature Granulocytes Absolute 0.06 #; Lymphocytes # 0.8 10*3/uL (1.4-4.0); Mean Corpuscular Volume 102.7 FL (87-102); Mean Platelet Volume 9.2 FL (9.6-12.0); Monocytes % 6.2 % (1.7-12.7); NRBC # 0.02 10*3/uL; Neutrophils % 86.5 % (38.7-73.9); Platelet Count 183 T/CUMM (130-400); Red Blood Count 3.28 MC/CUMM (3.8-5.5); Red Cell Distribution Width 16.1 % (9.3-17.3); White Blood Count 12.6 T/CUMM (4-12)
[2019-10-05 07:56] LABS: Calcium 9.4 MG/DL (8.5-10.1)
[2019-10-05] MEDS: AZITHROMYCIN 250 MG TABLET PO SCH (08:40)
[2019-10-05] MEDS: PIPERACILLIN/TAZOBACTAM 3,375 MG in SODIUM CHLORIDE 0.9% 100 ML IV SCH ×2 (08:40→20:40)
[2019-10-05] MEDS: cloNIDine 0.1 MG TABLET PO SCH ×2 (08:40→20:40)
[2019-10-05] MEDS: DILTIAZEM CD 120 MG CAPSULE PO SCH (08:40)
[2019-10-05] MEDS: MULTIVITAMIN (BEROCCA) TABLET PO SCH (08:40)
[2019-10-05] MEDS: METOPROLOL TARTRATE 50 MG TABLET PO SCH ×2 (08:40→20:40)
[2019-10-06 05:39] LABS: Basophils # 0.1 10*3/uL (0.0-0.2); Eosinophils # 0.3 10*3/uL (0.0-0.87); Hematocrit 34.2 VOL% (35.7-47.0); Hemoglobin 11.4 GM/DL (12.0-16.0); Immature Granulocytes % 0.6 %; Immature Granulocytes Absolute 0.05 #; Lymphocytes # 1.5 10*3/uL (1.4-4.0); Lymphocytes % 18.5 % (21.3-54.2); Mean Corpuscular HGB Conc 33.3 GM/DL (32-36); Mean Platelet Volume 9.4 FL (9.6-12.0); Monocytes % 10.9 % (1.7-12.7); NRBC # 0.03 10*3/uL; Platelet Count 177 T/CUMM (130-400); Red Blood Count 3.42 MC/CUMM (3.8-5.5); Red Cell Distribution Width 15.6 % (9.3-17.3); White Blood Count 8.3 T/CUMM (4-12)
[2019-10-06 05:57] LABS: Calcium 9.6 MG/DL (8.5-10.1); Osmolality,Calculated 274.2 MOS/KG (273-304)
[2019-10-06 06:16] LABS: Bilirubin,Total 0.9 MG/DL (0.2-1.0); Calcium 9.6 MG/DL (8.5-10.1); Osmolality,Calculated 274.2 MOS/KG (273-304)
[2019-10-06] MEDS: AZITHROMYCIN 250 MG TABLET PO SCH (08:11)
[2019-10-06] MEDS: DILTIAZEM CD 120 MG CAPSULE PO SCH (08:11)
[2019-10-06] MEDS: MULTIVITAMIN (BEROCCA) TABLET PO SCH (08:11)
[2019-10-06] MEDS: PIPERACILLIN/TAZOBACTAM 3,375 MG in SODIUM CHLORIDE 0.9% 100 ML IV SCH ×2 (08:12→20:05)
[2019-10-06] MEDS: METOPROLOL TARTRATE 50 MG TABLET PO SCH ×2 (08:12→20:05)
[2019-10-06] MEDS: cloNIDine 0.1 MG TABLET PO SCH ×2 (08:12→20:05)
[2019-10-06] MEDS: CALCIUM ACETATE 667 MG CAPSULE PO SCH ×2 (11:34→16:07)
[2019-10-06] MEDS: OLMESARTAN 20 MG TABLET PO SCH (11:34)
[2019-10-06] MEDS: ASPIRIN EC 81 MG TABLET PO SCH (11:35)
[2019-10-06] MEDS: LOPERAMIDE 2 MG CAPSULE PO PRN (20:05)
[2019-10-07] MEDS: LOPERAMIDE 2 MG CAPSULE PO PRN ×2 (03:57→20:33)
[2019-10-07 06:10] LABS: Basophils # 0.1 10*3/uL (0.0-0.2); Basophils % 1.1 % (0.0-0.8); Eosinophils # 0.2 10*3/uL (0.0-0.87); Eosinophils % 3.5 % (0.00-10.9); Hematocrit 28.1 VOL% (35.7-47.0); Hemoglobin 9.3 GM/DL (12.0-16.0); Immature Granulocytes % 0.3 %; Immature Granulocytes Absolute 0.02 #; Lymphocytes # 1.4 10*3/uL (1.4-4.0); Lymphocytes % 21.5 % (21.3-54.2); Mean Corpuscular HGB Conc 33.1 GM/DL (32-36); Mean Corpuscular Volume 99.6 FL (87-102); Mean Platelet Volume 9.8 FL (9.6-12.0); Monocytes % 13.8 % (1.7-12.7); Neutrophils % 59.8 % (38.7-73.9); Platelet Count 147 T/CUMM (130-400); Red Blood Count 2.82 MC/CUMM (3.8-5.5); Red Cell Distribution Width 15.3 % (9.3-17.3); White Blood Count 6.7 T/CUMM (4-12)
[2019-10-07 06:27] LABS: Calcium 8.7 MG/DL (8.5-10.1); Osmolality,Calculated 273.4 MOS/KG (273-304)
[2019-10-07 06:48] LABS: Anisocytosis 1+; Hypochromasia 1+; Macrocytosis 1+; Ovalocytes Slight; Polychromasia Slight
[2019-10-07 06:49] LABS: Platelet Estimate Adequate
[2019-10-07] MEDS: AZITHROMYCIN 250 MG TABLET PO SCH (08:07)
[2019-10-07] MEDS: OLMESARTAN 20 MG TABLET PO SCH (08:08)
[2019-10-07] MEDS: MULTIVITAMIN (BEROCCA) TABLET PO SCH (08:09)
[2019-10-07] MEDS: cloNIDine 0.1 MG TABLET PO SCH ×2 (08:09→20:32)
[2019-10-07] MEDS: CALCIUM ACETATE 667 MG CAPSULE PO SCH ×3 (08:09→16:40)
[2019-10-07] MEDS: METOPROLOL TARTRATE 50 MG TABLET PO SCH ×2 (08:09→20:32)
[2019-10-07] MEDS: ASPIRIN EC 81 MG TABLET PO SCH (08:09)
[2019-10-07] MEDS: PIPERACILLIN/TAZOBACTAM 3,375 MG in SODIUM CHLORIDE 0.9% 100 ML IV SCH (08:11)
[2019-10-07] MEDS: DILTIAZEM CD 120 MG CAPSULE PO SCH (08:23)
[2019-10-07] MEDS ORDERED: HEPARIN 10,000 UNIT/10 ML VIAL IV SCH (11:30)
[2019-10-08] MEDS: hydrALAZINE 20 MG/1 ML VIAL IV PRN (01:11)
[2019-10-08] MEDS: METOPROLOL TARTRATE 50 MG TABLET PO SCH (08:24)
[2019-10-08] MEDS: CALCIUM ACETATE 667 MG CAPSULE PO SCH ×2 (08:24→11:49)
[2019-10-08] MEDS: OLMESARTAN 20 MG TABLET PO SCH (08:25)
[2019-10-08] MEDS: ASPIRIN EC 81 MG TABLET PO SCH (08:25)
[2019-10-08] MEDS: DILTIAZEM CD 120 MG CAPSULE PO SCH (08:25)
[2019-10-08] MEDS: cloNIDine 0.1 MG TABLET PO SCH (08:25)
[2019-10-08] MEDS: MULTIVITAMIN (BEROCCA) TABLET PO SCH (08:25)
[2019-10-08] MEDS: AZITHROMYCIN 250 MG TABLET PO SCH (08:25)
[2019-10-08 11:48] VITALS: BP 161/72
[2019-10-08] MEDS ORDERED: DILTIAZEM CD 120 MG CAPSULE PO SCH (21:00)
== END 2019-10-08 11:49 | DRG 291 ==
LOC: EDUNIT# → EDBD → EDSEX → SUATTDRO → N.ED 03:16 → N.EDINP 06:10 → SUATTDRO 06:10 → N.2E 08:20
PROVIDERS: ADMIT Internal Medicine; ATTEND Family Medicine

== ENCOUNTER 2019-12-23 10:40 | Inpatient (IN) ==
[2019-12-23] MEDS ORDERED: FUROSEMIDE 100 MG/10 ML VIAL IV STA (11:12)
[2019-12-23] MEDS ORDERED: niCARdipine INJ 25 MG in SODIUM CHLORIDE 0.9% 240 ML IV PRN (11:14)
[2019-12-23 11:19] LABS: Basophils # 0.1 10*3/uL (0.0-0.2); Basophils % 0.6 % (0.0-0.8); Eosinophils % 0.1 % (0.00-10.9); Hematocrit 37.4 VOL% (35.7-47.0); Hemoglobin 12.2 GM/DL (12.0-16.0); Immature Granulocytes % 0.6 %; Immature Granulocytes Absolute 0.09 #; Lymphocytes # 1.3 10*3/uL (1.4-4.0); Lymphocytes % 8.1 % (21.3-54.2); Mean Corpuscular HGB Conc 32.6 GM/DL (32-36); Mean Corpuscular Volume 98.7 FL (87-102); Mean Platelet Volume 9.6 FL (9.6-12.0); Monocytes % 2.5 % (1.7-12.7); Neutrophils % 88.1 % (38.7-73.9); Platelet Count 250 T/CUMM (130-400); Red Blood Count 3.79 MC/CUMM (3.8-5.5); Red Cell Distribution Width 14.4 % (9.3-17.3); White Blood Count 15.7 T/CUMM (4-12)
[2019-12-23 11:47] LABS: Albumin 3.3 G/DL (3.4-5.0); Bilirubin,Total 0.5 MG/DL (0.2-1.0); Calcium 9.7 MG/DL (8.5-10.1); Osmolality,Calculated 290.2 MOS/KG (273-304); Total Protein 6.8 G/DL (6.4-8.3)
[2019-12-23] MEDS ORDERED: MORPHINE 4 MG/1 ML VIAL IV PRN (12:18)
[2019-12-23] MEDS ORDERED: ONDANSETRON 4 MG/2 ML VIAL IV PRN (12:18)
[2019-12-23] MEDS ORDERED: ALBUTEROL 2.5 MG/3 ML NEB RESP TX PRN (12:18)
[2019-12-23] MEDS ORDERED: ACETAMINOPHEN 325 MG TABLET PO PRN (12:18)
[2019-12-23 13:14] LABS: Risk Ratio 4.21; Thyroid Stimulating Hormone 5.6 uIU/ml (0.358-3.74); VLDL CHOLESTEROL 21.4 MG/DL
[2019-12-23] MEDS ORDERED: amLODIPine 5 MG TABLET PO ONE (15:52)
[2019-12-23] MEDS: CALCIUM ACETATE 667 MG CAPSULE PO SCH (17:25)
[2019-12-23] MEDS ORDERED: ENALAPRIL 2.5 MG/2 ML VIAL IV PRN (18:13)
[2019-12-23] MEDS ORDERED: METOPROLOL TARTRATE 5 MG/5 ML VIAL IV PRN (18:14)
[2019-12-23] MEDS: METOPROLOL TARTRATE 50 MG TABLET PO SCH (20:30)
[2019-12-23] MEDS: HEPARIN 5,000 UNIT/1 ML VIAL SUBCUT SCH (20:30)
[2019-12-23] MEDS: MEMANTINE 5 MG TABLET PO SCH (20:30)
[2019-12-24 05:20] LABS: Calcium 9.5 MG/DL (8.5-10.1); Osmolality,Calculated 276.1 MOS/KG (273-304)
[2019-12-24] MEDS ORDERED: minoxidiL 2.5 MG TABLET PO SCH ×2 (09:00)
[2019-12-24] MEDS: HEPARIN 5,000 UNIT/1 ML VIAL SUBCUT SCH ×2 (09:05→20:21)
[2019-12-24] MEDS: MEMANTINE 5 MG TABLET PO SCH ×2 (09:05→20:21)
[2019-12-24] MEDS: minoxidiL 2.5 MG TABLET PO SCH ×2 (09:05→20:21)
[2019-12-24] MEDS: CALCIUM ACETATE 667 MG CAPSULE PO SCH ×3 (09:05→17:42)
[2019-12-24] MEDS: PANTOPRAZOLE 40 MG TABLET PO SCH (09:05)
[2019-12-24] MEDS: OLMESARTAN 20 MG TABLET PO SCH (09:05)
[2019-12-24] MEDS: ASPIRIN EC 81 MG TABLET PO SCH (09:05)
[2019-12-24] MEDS: METOPROLOL TARTRATE 50 MG TABLET PO SCH ×2 (09:05→20:21)
[2019-12-24] MEDS: DILTIAZEM 60 MG TABLET PO SCH (09:05)
[2019-12-24 09:12] VITALS: BP 164/91
[2019-12-25] MEDS: CALCIUM ACETATE 667 MG CAPSULE PO SCH ×2 (09:45→12:56)
[2019-12-25] MEDS: OLMESARTAN 20 MG TABLET PO SCH (09:45)
[2019-12-25] MEDS: DILTIAZEM 60 MG TABLET PO SCH (09:45)
[2019-12-25] MEDS: MEMANTINE 5 MG TABLET PO SCH (09:45)
[2019-12-25] MEDS: HEPARIN 5,000 UNIT/1 ML VIAL SUBCUT SCH (09:45)
[2019-12-25] MEDS: ASPIRIN EC 81 MG TABLET PO SCH (09:45)
[2019-12-25] MEDS: PANTOPRAZOLE 40 MG TABLET PO SCH (09:46)
[2019-12-25] MEDS: minoxidiL 2.5 MG TABLET PO SCH (11:04)
[2019-12-25] MEDS: METOPROLOL TARTRATE 50 MG TABLET PO SCH (11:04)
[2019-12-25] MEDS ORDERED: HEPARIN 10,000 UNIT/10 ML VIAL IV PRN (11:28)
== END 2019-12-25 14:34 | disposition home health service (06) | DRG 291 ==
LOC: N.ED 10:40 → N.EDINP 12:18 → N.ICU 13:27
PROVIDERS: ADMIT Internal Medicine; ATTEND Internal Medicine

== ENCOUNTER 2020-02-02 19:03 | Inpatient (IN) ==
[2020-02-02] MEDS ORDERED: ALBUTEROL/IPRATROPIUM 3 ML NEB RESP TX STA (19:30)
[2020-02-02] MEDS ORDERED: methylPREDNISolone SOD SUC 125 MG/2 ML VIAL IV STA (19:30)
[2020-02-02] MEDS ORDERED: ONDANSETRON 4 MG/2 ML VIAL IV STA (19:30)
[2020-02-02 19:45] LABS: Alanine Aminotransferase < 9 U/L (13-56); Alkaline Phosphatase 111 U/L (45-117); Aspartate Amino Transferase 12 U/L (0-37); Blood Urea Nitrogen 46 MG/DL (7-18); Calcium 10.3 MG/DL (8.5-10.1); Estimated Glom Filtration Rate 5 ML/MIN; Glucose 147 MG/DL (74-106); Osmolality,Calculated 280.4 MOS/KG (273-304); Total Protein 7.3 G/DL (6.4-8.3)
[2020-02-02 19:46] LABS: Basophils # 0.1 10*3/uL (0.0-0.2); Basophils % 0.6 % (0.0-0.8); Eosinophils # 1.4 10*3/uL (0.0-0.87); Eosinophils % 5.4 % (0.00-10.9); Hematocrit 29.7 VOL% (35.7-47.0); Hemoglobin 9.4 GM/DL (12.0-16.0); Immature Granulocytes % 1.5 %; Immature Granulocytes Absolute 0.38 #; Lymphocytes # 1.3 10*3/uL (1.4-4.0); Lymphocytes % 5.1 % (21.3-54.2); Mean Corpuscular HGB Conc 31.6 GM/DL (32-36); Mean Corpuscular Volume 97.1 FL (87-102); Mean Platelet Volume 9.7 FL (9.6-12.0); Neutrophils % 81.4 % (38.7-73.9); Platelet Count 311 T/CUMM (130-400); Red Blood Count 3.06 MC/CUMM (3.8-5.5); Red Cell Distribution Width 17.9 % (9.3-17.3); White Blood Count 25.2 T/CUMM (4-12)
[2020-02-02 20:01] LABS: INR 1.1; PT Patient Result 11.4 SECS (9.8-11.9)
[2020-02-02 20:16] LABS: Eosinophils 11 % (0-10); Lymphocytes 7 % (20-55); Segmented Neutrophils 79 % (50-85); Total Cells Counted 100
[2020-02-02 20:17] LABS: Hypochromasia 2+; Macrocytosis 1+; Platelet Estimate Normal
[2020-02-02] MEDS ORDERED: DEXTROSE 50% 25 GM/50 ML VIAL IV PRN (21:55)
[2020-02-02] MEDS ORDERED: GLUCAGON 1 MG VIAL IM PRN (21:55)
[2020-02-02] MEDS ORDERED: NICOTINE 21 MG/24 HR PATCH TRANSDERM PRN (22:01)
[2020-02-02] MEDS ORDERED: ONDANSETRON 4 MG/2 ML VIAL IV PRN (22:01)
[2020-02-02] MEDS ORDERED: guaiFENesin/DM ER 600-30 MG TABLET PO PRN (22:01)
[2020-02-02] MEDS ORDERED: ACETAMINOPHEN 325 MG TABLET PO PRN (22:01)
[2020-02-02] MEDS ORDERED: diphenhydrAMINE CAP 25 MG CAPSULE PO PRN (22:01)
[2020-02-02] MEDS ORDERED: MORPHINE 4 MG/1 ML VIAL IV PRN (22:01)
[2020-02-02] MEDS ORDERED: hydrALAZINE 20 MG/1 ML VIAL IV PRN (22:01)
[2020-02-02] MEDS ORDERED: DEXTROSE 50% 25 GM/50 ML SYRINGE IV PRN (22:32)
[2020-02-02] MEDS ORDERED: VANCOMYCIN INJ 500 MG in SODIUM CHLORIDE 0.9% 100 ML IV PRN (23:30)
[2020-02-03] MEDS: ALBUTEROL/IPRATROPIUM 3 ML NEB RESP TX SCH ×4 (00:30→19:49)
[2020-02-03] MEDS: PIPERACILLIN/TAZOBACTAM 3,375 MG in SODIUM CHLORIDE 0.9% 100 ML IV SCH ×3 (00:33→23:53)
[2020-02-03 00:40] LABS: Bilirubin,Urine Negative (Negative); Blood, Urine Small mg/dL (Negative); Glucose,Urine (UA) >=500 mg/dL (Negative); Ketones,Urine Negative (Negative); Nitrite,Urine Negative (Negative); Protein,Urine >=500 MG/DL; RBC,Urine 11 /HPF (0-4); Renal Epithelial Cells,Urine Occasional /HPF (<1); Squamous Epithelial Cell,Urine Occasional /HPF (0-10); Urine Appearance CLEAR (Clear); Urine Color Yellow (Yellow); Urine Specific Gravity 1.009 (1.001-1.035); Urine Urobilinogen < 2.0 EU/DL (0.2-1.0); WBC,Urine 2 /HPF (0-6)
[2020-02-03] MEDS ORDERED: VANCOMYCIN 1,000 MG VIAL ONE (03:46)
[2020-02-03] MEDS ORDERED: VANCOMYCIN INJ 1,000 MG in SODIUM CHLORIDE 0.9% 250 ML IV ONE (04:00)
[2020-02-03] MEDS ORDERED: LACTULOSE 20 GM/30 ML UDCUP PO PRN (09:12)
[2020-02-03] MEDS ORDERED: MAGNESIUM HYDROXIDE SUSP 30 ML UDCUP PO PRN (09:12)
[2020-02-03] MEDS ORDERED: MELATONIN 3 MG TABLET PO PRN (09:12)
[2020-02-03] MEDS: METOPROLOL TARTRATE 50 MG TABLET PO SCH ×2 (09:40→20:36)
[2020-02-03] MEDS: amLODIPine 5 MG TABLET PO SCH ×2 (09:41→20:36)
[2020-02-03] MEDS: OLMESARTAN 20 MG TABLET PO SCH (09:41)
[2020-02-03] MEDS ORDERED: HEPARIN 10,000 UNIT/10 ML VIAL IV SCH (13:15)
[2020-02-03] MEDS: cloNIDine 0.1 MG TABLET PO SCH ×2 (15:55→20:36)
[2020-02-03] MEDS ORDERED: VANCOMYCIN INJ 500 MG in SODIUM CHLORIDE 0.9% 100 ML IV ONE (17:00)
[2020-02-03] MEDS: HEPARIN 5,000 UNIT/1 ML VIAL SUBCUT SCH (19:11)
[2020-02-03] MEDS: FOLIC ACID 0.4 MG TABLET PO SCH (20:36)
[2020-02-03] MEDS: POLYETHYLENE GLYCOL POWDER 17 GM PACK PO SCH (20:36)
[2020-02-03] MEDS: DOCUSATE SODIUM 100 MG CAPSULE PO SCH (20:36)
[2020-02-03] MEDS: MEGESTROL 40 MG TABLET PO SCH (20:36)
[2020-02-03] MEDS: MEMANTINE 5 MG TABLET PO SCH (20:36)
[2020-02-04] MEDS: ALBUTEROL/IPRATROPIUM 3 ML NEB RESP TX SCH ×4 (01:27→19:11)
[2020-02-04] MEDS: HEPARIN 5,000 UNIT/1 ML VIAL SUBCUT SCH ×3 (02:42→17:33)
[2020-02-04 04:04] LABS: Basophils # 0.1 10*3/uL (0.0-0.2); Eosinophils # 0.5 10*3/uL (0.0-0.87); Eosinophils % 6.2 % (0.00-10.9); Hematocrit 21.3 VOL% (35.7-47.0); Hemoglobin 6.7 GM/DL (12.0-16.0); Immature Granulocytes % 1.1 %; Immature Granulocytes Absolute 0.09 #; Lymphocytes # 1.3 10*3/uL (1.4-4.0); Lymphocytes % 16.3 % (21.3-54.2); Mean Corpuscular HGB Conc 31.5 GM/DL (32-36); Mean Corpuscular Volume 97.7 FL (87-102); Mean Platelet Volume 9.6 FL (9.6-12.0); Monocytes % 14.1 % (1.7-12.7); NRBC # 0.02 10*3/uL; Neutrophils % 61.3 % (38.7-73.9); Platelet Count 223 T/CUMM (130-400); Red Blood Count 2.18 MC/CUMM (3.8-5.5); Red Cell Distribution Width 18.6 % (9.3-17.3); White Blood Count 8.1 T/CUMM (4-12)
[2020-02-04 04:29] LABS: Calcium 8.7 MG/DL (8.5-10.1); Osmolality,Calculated 275.1 MOS/KG (273-304)
[2020-02-04] MEDS: cloNIDine 0.1 MG TABLET PO SCH ×3 (08:53→20:59)
[2020-02-04] MEDS: METOPROLOL TARTRATE 50 MG TABLET PO SCH ×2 (08:53→20:58)
[2020-02-04] MEDS: OLMESARTAN 20 MG TABLET PO SCH (08:54)
[2020-02-04] MEDS: FOLIC ACID 0.4 MG TABLET PO SCH ×2 (08:54→20:59)
[2020-02-04] MEDS: ASPIRIN EC 81 MG TABLET PO SCH (08:55)
[2020-02-04] MEDS: DOCUSATE SODIUM 100 MG CAPSULE PO SCH ×2 (08:55→20:59)
[2020-02-04] MEDS: amLODIPine 5 MG TABLET PO SCH ×2 (08:55→20:59)
[2020-02-04] MEDS: MEMANTINE 5 MG TABLET PO SCH ×2 (08:56→20:59)
[2020-02-04] MEDS: AMIODARONE 200 MG TABLET PO SCH (08:56)
[2020-02-04] MEDS: POLYETHYLENE GLYCOL POWDER 17 GM PACK PO SCH ×2 (08:57→20:59)
[2020-02-04] MEDS: PIPERACILLIN/TAZOBACTAM 3,375 MG in SODIUM CHLORIDE 0.9% 100 ML IV SCH ×2 (11:01→23:57)
[2020-02-04] MEDS: MEGESTROL 40 MG TABLET PO SCH (20:59)
[2020-02-05] MEDS: ALBUTEROL/IPRATROPIUM 3 ML NEB RESP TX SCH ×4 (02:02→19:38)
[2020-02-05] MEDS: HEPARIN 5,000 UNIT/1 ML VIAL SUBCUT SCH ×3 (02:05→22:32)
[2020-02-05 05:43] LABS: Basophils # 0.1 10*3/uL (0.0-0.2); Eosinophils # 1.1 10*3/uL (0.0-0.87); Hematocrit 21.3 VOL% (35.7-47.0); Hemoglobin 6.7 GM/DL (12.0-16.0); Immature Granulocytes % 1.6 %; Immature Granulocytes Absolute 0.16 #; Lymphocytes # 1.8 10*3/uL (1.4-4.0); Lymphocytes % 18.3 % (21.3-54.2); Mean Corpuscular HGB Conc 31.5 GM/DL (32-36); Mean Corpuscular Volume 97.7 FL (87-102); Mean Platelet Volume 8.9 FL (9.6-12.0); Monocytes % 12.2 % (1.7-12.7); Neutrophils % 55.9 % (38.7-73.9); Platelet Count 232 T/CUMM (130-400); Red Blood Count 2.18 MC/CUMM (3.8-5.5); Red Cell Distribution Width 18.7 % (9.3-17.3); White Blood Count 9.9 T/CUMM (4-12)
[2020-02-05 05:45] LABS: Basophils # 0.1 10*3/uL (0.0-0.2); Basophils % 1.1 % (0.0-0.8); Hematocrit 21.6 VOL% (35.7-47.0); Hemoglobin 6.8 GM/DL (12.0-16.0); Immature Granulocytes % 1.7 %; Immature Granulocytes Absolute 0.16 #; Lymphocytes # 1.7 10*3/uL (1.4-4.0); Lymphocytes % 18.1 % (21.3-54.2); Mean Corpuscular HGB Conc 31.5 GM/DL (32-36); Mean Corpuscular Volume 97.7 FL (87-102); Mean Platelet Volume 9.1 FL (9.6-12.0); Monocytes % 11.3 % (1.7-12.7); NRBC # 0.02 10*3/uL; Neutrophils % 56.8 % (38.7-73.9); Platelet Count 217 T/CUMM (130-400); Red Blood Count 2.21 MC/CUMM (3.8-5.5); Red Cell Distribution Width 18.6 % (9.3-17.3); White Blood Count 9.4 T/CUMM (4-12)
[2020-02-05 06:03] LABS: Calcium 8.8 MG/DL (8.5-10.1); Osmolality,Calculated 280.1 MOS/KG (273-304)
[2020-02-05 06:08] LABS: % Iron Saturation 27.6 % (18-50); Ferritin 625.5 ng/ml (8-252)
[2020-02-05 06:09] LABS: Eosinophils 10 % (0-10); Hypochromasia 2+; Lymphocytes 12 % (20-55); Microcytosis 1+; Ovalocytes Slight; Platelet Estimate Adequate; Segmented Neutrophils 70 % (50-85); Total Cells Counted 100
[2020-02-05 06:15] LABS: Eosinophils 10 % (0-10); Lymphocytes 10 % (20-55); Segmented Neutrophils 71 % (50-85); Total Cells Counted 100
[2020-02-05 06:16] LABS: Hypochromasia 2+; Microcytosis 1+; Ovalocytes Slight; Platelet Estimate Adequate
[2020-02-05 06:37] LABS: Folate 16.8 NG/ML (5.4-24.0); Vitamin B12 182 PG/ML (211-911)
[2020-02-05 07:06] LABS: Sedimentation Rate-Westergren 77 MM/HR (0-30)
[2020-02-05 08:14] LABS: Hemoglobin A1 (Alkaline) 97.1 % (96.5-98.5); Hemoglobin A2 (Alkaline) 2.9 % (1.5-3.5)
[2020-02-05] MEDS ORDERED: SODIUM CHLORIDE 0.9% 1,000 ML IV PRN (08:40)
[2020-02-05] MEDS: FOLIC ACID 0.4 MG TABLET PO SCH ×2 (08:56→22:30)
[2020-02-05] MEDS: ASPIRIN EC 81 MG TABLET PO SCH (08:57)
[2020-02-05] MEDS: DOCUSATE SODIUM 100 MG CAPSULE PO SCH ×2 (08:57→22:31)
[2020-02-05] MEDS: AMIODARONE 200 MG TABLET PO SCH (08:57)
[2020-02-05] MEDS: MEMANTINE 5 MG TABLET PO SCH ×2 (08:58→22:30)
[2020-02-05] MEDS ORDERED: CYANOCOBALAMIN 1000 MCG/1 ML VIAL IM ONE (14:00)
[2020-02-05] MEDS: PIPERACILLIN/TAZOBACTAM 3,375 MG in SODIUM CHLORIDE 0.9% 100 ML IV SCH (14:40)
[2020-02-05] MEDS: POLYETHYLENE GLYCOL POWDER 17 GM PACK PO SCH ×2 (14:45→22:57)
[2020-02-05] MEDS: METOPROLOL TARTRATE 50 MG TABLET PO SCH ×2 (14:45→22:56)
[2020-02-05] MEDS: amLODIPine 5 MG TABLET PO SCH ×2 (14:45→22:30)
[2020-02-05] MEDS: OLMESARTAN 20 MG TABLET PO SCH (14:45)
[2020-02-05] MEDS: cloNIDine 0.1 MG TABLET PO SCH ×3 (14:45→22:56)
[2020-02-05] MEDS: MEGESTROL 40 MG TABLET PO SCH (22:30)
[2020-02-06] MEDS: PIPERACILLIN/TAZOBACTAM 3,375 MG in SODIUM CHLORIDE 0.9% 100 ML IV SCH ×2 (00:39→13:16)
[2020-02-06] MEDS: ALBUTEROL/IPRATROPIUM 3 ML NEB RESP TX SCH ×4 (01:00→19:02)
[2020-02-06 04:20] LABS: Basophils # 0.1 10*3/uL (0.0-0.2); Basophils % 1.1 % (0.0-0.8); Eosinophils # 1.2 10*3/uL (0.0-0.87); Eosinophils % 9.8 % (0.00-10.9); Hematocrit 26.3 VOL% (35.7-47.0); Hemoglobin 8.5 GM/DL (12.0-16.0); Immature Granulocytes % 2.1 %; Immature Granulocytes Absolute 0.26 #; Lymphocytes # 1.9 10*3/uL (1.4-4.0); Lymphocytes % 14.9 % (21.3-54.2); Mean Corpuscular HGB Conc 32.3 GM/DL (32-36); Mean Corpuscular Volume 94.3 FL (87-102); Mean Platelet Volume 9.3 FL (9.6-12.0); Monocytes % 10.3 % (1.7-12.7); NRBC # 0.02 10*3/uL; Neutrophils % 61.8 % (38.7-73.9); Platelet Count 215 T/CUMM (130-400); Red Blood Count 2.79 MC/CUMM (3.8-5.5); White Blood Count 12.5 T/CUMM (4-12)
[2020-02-06 04:53] LABS: Calcium 8.2 MG/DL (8.5-10.1); Osmolality,Calculated 275.8 MOS/KG (273-304)
[2020-02-06] MEDS: HEPARIN 5,000 UNIT/1 ML VIAL SUBCUT SCH ×3 (07:20→23:44)
[2020-02-06] MEDS: AMIODARONE 200 MG TABLET PO SCH (09:23)
[2020-02-06] MEDS: amLODIPine 5 MG TABLET PO SCH ×2 (09:24→21:06)
[2020-02-06] MEDS: POLYETHYLENE GLYCOL POWDER 17 GM PACK PO SCH ×2 (09:24→23:09)
[2020-02-06] MEDS: cloNIDine 0.1 MG TABLET PO SCH ×3 (09:24→21:04)
[2020-02-06] MEDS: METOPROLOL TARTRATE 50 MG TABLET PO SCH ×2 (09:24→21:04)
[2020-02-06] MEDS: DOCUSATE SODIUM 100 MG CAPSULE PO SCH ×2 (09:24→23:07)
[2020-02-06] MEDS: FOLIC ACID 0.4 MG TABLET PO SCH ×2 (09:24→21:04)
[2020-02-06] MEDS: ASPIRIN EC 81 MG TABLET PO SCH (09:24)
[2020-02-06] MEDS: CYANOCOBALAMIN 100 MCG TABLET PO SCH (09:24)
[2020-02-06] MEDS: MEMANTINE 5 MG TABLET PO SCH ×2 (09:24→21:07)
[2020-02-06] MEDS: OLMESARTAN 20 MG TABLET PO SCH (09:24)
[2020-02-06] MEDS ORDERED: SODIUM CHLORIDE 0.9% 1,000 ML IV PRN (11:49)
[2020-02-06] MEDS ORDERED: VANCOMYCIN INJ 1,000 MG in SODIUM CHLORIDE 0.9% 250 ML IV ONE ×2 (20:18→23:30)
[2020-02-06] MEDS: MEGESTROL 40 MG TABLET PO SCH (21:06)
[2020-02-07] MEDS: ALBUTEROL/IPRATROPIUM 3 ML NEB RESP TX SCH ×4 (00:06→18:45)
[2020-02-07] MEDS: PIPERACILLIN/TAZOBACTAM 3,375 MG in SODIUM CHLORIDE 0.9% 100 ML IV SCH ×3 (00:54→23:44)
[2020-02-07 06:07] LABS: Basophils # 0.1 10*3/uL (0.0-0.2); Basophils % 1.3 % (0.0-0.8); Eosinophils # 1.7 10*3/uL (0.0-0.87); Eosinophils % 15.4 % (0.00-10.9); Hematocrit 26.4 VOL% (35.7-47.0); Hemoglobin 8.5 GM/DL (12.0-16.0); Immature Granulocytes % 2.6 %; Immature Granulocytes Absolute 0.28 #; Lymphocytes # 1.6 10*3/uL (1.4-4.0); Lymphocytes % 14.4 % (21.3-54.2); Mean Corpuscular HGB Conc 32.2 GM/DL (32-36); Mean Corpuscular Volume 96.4 FL (87-102); Mean Platelet Volume 8.6 FL (9.6-12.0); Monocytes % 10.8 % (1.7-12.7); Neutrophils % 55.5 % (38.7-73.9); Platelet Count 192 T/CUMM (130-400); Red Blood Count 2.74 MC/CUMM (3.8-5.5); Red Cell Distribution Width 18.6 % (9.3-17.3); White Blood Count 10.9 T/CUMM (4-12)
[2020-02-07 06:26] LABS: Calcium 8.3 MG/DL (8.5-10.1)
[2020-02-07] MEDS: HEPARIN 5,000 UNIT/1 ML VIAL SUBCUT SCH ×3 (06:26→23:45)
[2020-02-07 06:50] LABS: Anisocytosis 2+; Band Neutrophils 1 % (0-10); Eosinophils 16 % (0-10); Hypersegmented Neutrophil Few; Lymphocytes 17 % (20-55); Macrocytosis 1+; Platelet Estimate Normal; Poikilocytosis Slight; Polychromasia Slight; Segmented Neutrophils 58 % (50-85); Total Cells Counted 100
[2020-02-07 06:51] LABS: Tear Drop Cells Few
[2020-02-07] MEDS: FOLIC ACID 0.4 MG TABLET PO SCH ×2 (09:01→20:52)
[2020-02-07] MEDS: DOCUSATE SODIUM 100 MG CAPSULE PO SCH ×2 (09:01→20:51)
[2020-02-07] MEDS: ASPIRIN EC 81 MG TABLET PO SCH (09:01)
[2020-02-07] MEDS: OLMESARTAN 20 MG TABLET PO SCH (09:01)
[2020-02-07] MEDS: METOPROLOL TARTRATE 50 MG TABLET PO SCH ×2 (09:01→20:52)
[2020-02-07] MEDS: cloNIDine 0.1 MG TABLET PO SCH ×3 (09:01→20:51)
[2020-02-07] MEDS: amLODIPine 5 MG TABLET PO SCH ×2 (09:01→20:52)
[2020-02-07] MEDS: AMIODARONE 200 MG TABLET PO SCH (09:02)
[2020-02-07] MEDS: POLYETHYLENE GLYCOL POWDER 17 GM PACK PO SCH ×2 (09:02→21:09)
[2020-02-07] MEDS: MEMANTINE 5 MG TABLET PO SCH ×2 (09:02→20:51)
[2020-02-07] MEDS: CYANOCOBALAMIN 100 MCG TABLET PO SCH (09:02)
[2020-02-07] MEDS: MEGESTROL 40 MG TABLET PO SCH (20:51)
[2020-02-08] MEDS: ALBUTEROL/IPRATROPIUM 3 ML NEB RESP TX SCH ×4 (01:00→18:59)
[2020-02-08] MEDS: HEPARIN 5,000 UNIT/1 ML VIAL SUBCUT SCH ×3 (06:00→22:53)
[2020-02-08 06:07] LABS: Basophils # 0.2 10*3/uL (0.0-0.2); Basophils % 1.4 % (0.0-0.8); Eosinophils # 1.6 10*3/uL (0.0-0.87); Eosinophils % 13.3 % (0.00-10.9); Hematocrit 33.9 VOL% (35.7-47.0); Immature Granulocytes % 2.1 %; Immature Granulocytes Absolute 0.25 #; Lymphocytes # 1.8 10*3/uL (1.4-4.0); Lymphocytes % 15.1 % (21.3-54.2); Mean Corpuscular HGB Conc 33.6 GM/DL (32-36); Mean Corpuscular Volume 89.4 FL (87-102); Mean Platelet Volume 9.3 FL (9.6-12.0); Monocytes % 12.2 % (1.7-12.7); Neutrophils % 55.9 % (38.7-73.9); Platelet Count 158 T/CUMM (130-400); Red Cell Distribution Width 20.2 % (9.3-17.3); White Blood Count 11.8 T/CUMM (4-12)
[2020-02-08 06:25] LABS: Calcium 8.6 MG/DL (8.5-10.1); Osmolality,Calculated 267.4 MOS/KG (273-304)
[2020-02-08 06:32] LABS: Red Blood Count 3.79 MC/CUMM (3.8-5.5)
[2020-02-08 06:33] LABS: Hemoglobin 11.4 GM/DL (12.0-16.0)
[2020-02-08 06:39] LABS: Eosinophils 12 % (0-10); Lymphocytes 19 % (20-55); Nucleated Red Blood Cells 2 (0-5); Platelet Estimate Normal; Segmented Neutrophils 57 % (50-85); Total Cells Counted 100
[2020-02-08] MEDS: cloNIDine 0.1 MG TABLET PO SCH ×3 (09:45→22:04)
[2020-02-08] MEDS: MEMANTINE 5 MG TABLET PO SCH ×2 (09:45→22:04)
[2020-02-08] MEDS: amLODIPine 5 MG TABLET PO SCH ×2 (09:45→22:04)
[2020-02-08] MEDS: METOPROLOL TARTRATE 50 MG TABLET PO SCH ×2 (09:45→22:04)
[2020-02-08] MEDS: FOLIC ACID 0.4 MG TABLET PO SCH ×2 (09:45→22:04)
[2020-02-08] MEDS: OLMESARTAN 20 MG TABLET PO SCH (09:45)
[2020-02-08] MEDS: ASPIRIN EC 81 MG TABLET PO SCH (09:45)
[2020-02-08] MEDS: DOCUSATE SODIUM 100 MG CAPSULE PO SCH ×2 (09:46→22:04)
[2020-02-08] MEDS: AMIODARONE 200 MG TABLET PO SCH (09:46)
[2020-02-08] MEDS: POLYETHYLENE GLYCOL POWDER 17 GM PACK PO SCH ×2 (09:46→22:11)
[2020-02-08] MEDS: CYANOCOBALAMIN 100 MCG TABLET PO SCH (09:46)
[2020-02-08] MEDS: PIPERACILLIN/TAZOBACTAM 3,375 MG in SODIUM CHLORIDE 0.9% 100 ML IV SCH ×2 (12:28→22:50)
[2020-02-08] MEDS: MEGESTROL 40 MG TABLET PO SCH (22:04)
[2020-02-09] MEDS: ALBUTEROL/IPRATROPIUM 3 ML NEB RESP TX SCH ×4 (01:20→18:47)
[2020-02-09 05:47] LABS: Basophils # 0.1 10*3/uL (0.0-0.2); Basophils % 1.4 % (0.0-0.8); Eosinophils # 1.2 10*3/uL (0.0-0.87); Eosinophils % 12.2 % (0.00-10.9); Hematocrit 33.4 VOL% (35.7-47.0); Immature Granulocytes % 2.1 %; Lymphocytes # 1.4 10*3/uL (1.4-4.0); Lymphocytes % 14.3 % (21.3-54.2); Mean Corpuscular HGB Conc 32.9 GM/DL (32-36); Mean Corpuscular Volume 90.3 FL (87-102); Mean Platelet Volume 9.3 FL (9.6-12.0); Monocytes % 14.5 % (1.7-12.7); Neutrophils % 55.5 % (38.7-73.9); Platelet Count 157 T/CUMM (130-400); Red Cell Distribution Width 20.1 % (9.3-17.3); White Blood Count 9.7 T/CUMM (4-12)
[2020-02-09 06:12] LABS: Band Neutrophils 3 % (0-10); Eosinophils 9 % (0-10); Hypochromasia 1+; Lymphocytes 15 % (20-55); Metamyelocytes 1 %; Microcytosis 1+; Segmented Neutrophils 64 % (50-85); Total Cells Counted 100
[2020-02-09 06:13] LABS: Anisocytosis 1+; Atypical Lymphocytes Few; Ovalocytes Slight; Platelet Estimate Adequate
[2020-02-09 06:18] LABS: Calcium 8.5 MG/DL (8.5-10.1)
[2020-02-09] MEDS: AMIODARONE 200 MG TABLET PO SCH (09:23)
[2020-02-09] MEDS: HEPARIN 5,000 UNIT/1 ML VIAL SUBCUT SCH ×2 (09:24→16:52)
[2020-02-09] MEDS: DOCUSATE SODIUM 100 MG CAPSULE PO SCH ×2 (09:25→20:19)
[2020-02-09] MEDS: OLMESARTAN 20 MG TABLET PO SCH (09:26)
[2020-02-09] MEDS: amLODIPine 5 MG TABLET PO SCH ×2 (09:26→20:19)
[2020-02-09] MEDS: METOPROLOL TARTRATE 50 MG TABLET PO SCH ×2 (09:26→20:19)
[2020-02-09] MEDS: FOLIC ACID 0.4 MG TABLET PO SCH ×2 (09:27→20:19)
[2020-02-09] MEDS: ASPIRIN EC 81 MG TABLET PO SCH (09:27)
[2020-02-09] MEDS: MEMANTINE 5 MG TABLET PO SCH ×2 (09:27→20:19)
[2020-02-09] MEDS: cloNIDine 0.1 MG TABLET PO SCH ×3 (09:27→20:19)
[2020-02-09] MEDS: CYANOCOBALAMIN 100 MCG TABLET PO SCH (09:27)
[2020-02-09] MEDS: POLYETHYLENE GLYCOL POWDER 17 GM PACK PO SCH ×2 (09:28→20:35)
[2020-02-09] MEDS: PIPERACILLIN/TAZOBACTAM 3,375 MG in SODIUM CHLORIDE 0.9% 100 ML IV SCH (13:25)
[2020-02-09] MEDS: MEGESTROL 40 MG TABLET PO SCH (20:19)
[2020-02-10] MEDS: HEPARIN 5,000 UNIT/1 ML VIAL SUBCUT SCH ×3 (00:13→17:14)
[2020-02-10] MEDS: ALBUTEROL/IPRATROPIUM 3 ML NEB RESP TX SCH ×4 (01:48→19:20)
[2020-02-10 13:08] LABS: Hepatitis B Core IgM Quant 0.13 Index; Hepatitis B Surface Ag Quant < 0.10 Index; Hepatitis B Surface Ag Result Negative (Negative); Hepatitis C Virus Ab Quant < 0.02 Index; Hepatitis C Virus Ab Result Negative (Negative)
[2020-02-10] MEDS: DOCUSATE SODIUM 100 MG CAPSULE PO SCH ×2 (14:43→22:01)
[2020-02-10] MEDS: AMIODARONE 200 MG TABLET PO SCH (14:43)
[2020-02-10] MEDS: METOPROLOL TARTRATE 50 MG TABLET PO SCH ×2 (14:43→22:01)
[2020-02-10] MEDS: FOLIC ACID 0.4 MG TABLET PO SCH ×2 (14:43→22:01)
[2020-02-10] MEDS: ASPIRIN EC 81 MG TABLET PO SCH (14:44)
[2020-02-10] MEDS: amLODIPine 5 MG TABLET PO SCH ×2 (14:44→22:01)
[2020-02-10] MEDS: MEMANTINE 5 MG TABLET PO SCH ×2 (14:44→22:01)
[2020-02-10] MEDS: cloNIDine 0.1 MG TABLET PO SCH ×3 (14:44→22:01)
[2020-02-10] MEDS: CYANOCOBALAMIN 100 MCG TABLET PO SCH (14:44)
[2020-02-10] MEDS: OLMESARTAN 20 MG TABLET PO SCH (14:44)
[2020-02-10] MEDS: POLYETHYLENE GLYCOL POWDER 17 GM PACK PO SCH ×2 (14:45→22:02)
[2020-02-10] MEDS: MEGESTROL 40 MG TABLET PO SCH (22:02)
[2020-02-11] MEDS: ALBUTEROL/IPRATROPIUM 3 ML NEB RESP TX SCH ×2 (00:06→07:45)
[2020-02-11] MEDS: HEPARIN 5,000 UNIT/1 ML VIAL SUBCUT SCH ×2 (00:59→09:07)
[2020-02-11 08:08] VITALS: BP 164/74
[2020-02-11 08:50] LABS: Calcium 8.9 MG/DL (8.5-10.1); Osmolality,Calculated 274.4 MOS/KG (273-304)
[2020-02-11] MEDS: METOPROLOL TARTRATE 50 MG TABLET PO SCH (09:02)
[2020-02-11] MEDS: amLODIPine 5 MG TABLET PO SCH (09:02)
[2020-02-11] MEDS: OLMESARTAN 20 MG TABLET PO SCH (09:02)
[2020-02-11] MEDS: ASPIRIN EC 81 MG TABLET PO SCH (09:02)
[2020-02-11] MEDS: FOLIC ACID 0.4 MG TABLET PO SCH (09:02)
[2020-02-11] MEDS: cloNIDine 0.1 MG TABLET PO SCH (09:02)
[2020-02-11] MEDS: CYANOCOBALAMIN 100 MCG TABLET PO SCH (09:03)
[2020-02-11] MEDS: MEMANTINE 5 MG TABLET PO SCH (09:03)
[2020-02-11] MEDS: AMIODARONE 200 MG TABLET PO SCH (09:03)
[2020-02-11] MEDS: DOCUSATE SODIUM 100 MG CAPSULE PO SCH (09:13)
[2020-02-11] MEDS: POLYETHYLENE GLYCOL POWDER 17 GM PACK PO SCH (09:13)
== END 2020-02-11 11:04 | DRG 291 ==
LOC: N.ED 19:03 → N.EDINP 19:03 → N.CC 02-03 06:39 → SUATTDRO 02-03 08:31 → N.TELES 02-04 11:25
PROVIDERS: ADMIT Hospitalist; ATTEND Family Medicine

== ENCOUNTER 2020-03-01 11:43 | Inpatient (IN) ==
[2020-03-01 12:01] LABS: Basophils # 0.1 10*3/uL (0.0-0.2); Basophils % 0.8 % (0.0-0.8); Eosinophils % 0.1 % (0.00-10.9); Hematocrit 38.6 VOL% (35.7-47.0); Hemoglobin 12.3 GM/DL (12.0-16.0); Immature Granulocytes % 0.5 %; Immature Granulocytes Absolute 0.05 #; Lymphocytes # 0.6 10*3/uL (1.4-4.0); Lymphocytes % 5.2 % (21.3-54.2); Mean Corpuscular HGB Conc 31.9 GM/DL (32-36); Mean Corpuscular Volume 96.3 FL (87-102); Mean Platelet Volume 9.7 FL (9.6-12.0); Monocytes % 5.1 % (1.7-12.7); Neutrophils % 88.3 % (38.7-73.9); Platelet Count 234 T/CUMM (130-400); Red Blood Count 4.01 MC/CUMM (3.8-5.5); Red Cell Distribution Width 16.7 % (9.3-17.3)
[2020-03-01] MEDS ORDERED: MORPHINE 4 MG/1 ML VIAL IV STA (12:12)
[2020-03-01 12:27] LABS: PT Patient Result 10.9 SECS (9.8-11.9); Partial Thromboplastin Time 29.1 SECS (23.9-33.8)
[2020-03-01] MEDS ORDERED: ONDANSETRON 4 MG/2 ML VIAL ONE (12:30)
[2020-03-01 12:44] LABS: Albumin 3.2 G/DL (3.4-5.0); Bilirubin,Total 0.4 MG/DL (0.2-1.0); Total Protein 7.1 G/DL (6.4-8.3)
[2020-03-01] MEDS ORDERED: hydrALAZINE 20 MG/1 ML VIAL IV STA (14:10)
[2020-03-01] MEDS ORDERED: DEXTROSE 50% 25 GM/50 ML VIAL IV PRN (14:11)
[2020-03-01] MEDS ORDERED: GLUCAGON 1 MG VIAL IM PRN (14:11)
[2020-03-01] MEDS ORDERED: hydrALAZINE 20 MG/1 ML VIAL IV PRN (14:17)
[2020-03-01] MEDS ORDERED: ACETAMINOPHEN 325 MG TABLET PO PRN (14:17)
[2020-03-01] MEDS ORDERED: BISACODYL 5 MG TABLET PO PRN (14:17)
[2020-03-01] MEDS ORDERED: ONDANSETRON 4 MG/2 ML VIAL IV PRN (14:17)
[2020-03-01] MEDS ORDERED: LACTULOSE 20 GM/30 ML UDCUP PO PRN (14:21)
[2020-03-01] MEDS ORDERED: MELATONIN 3 MG TABLET PO PRN (14:21)
[2020-03-01] MEDS ORDERED: ALBUTEROL 2.5 MG/3 ML NEB RESP TX PRN (14:21)
[2020-03-01] MEDS ORDERED: cloNIDine 0.1 MG TABLET PO STA (14:24)
[2020-03-01] MEDS: HEPARIN 5,000 UNIT/1 ML VIAL SUBCUT SCH ×2 (14:30→21:38)
[2020-03-01] MEDS: cloNIDine 0.1 MG TABLET PO SCH ×2 (15:34→20:37)
[2020-03-01] MEDS ORDERED: SODIUM POLYSTYRENE SULFATE 15 GM/60 ML BOTTLE PO STA (16:51)
[2020-03-01] MEDS: METOPROLOL TARTRATE 100 MG TABLET PO SCH (20:37)
[2020-03-01] MEDS: amLODIPine 5 MG TABLET PO SCH (20:37)
[2020-03-01] MEDS: MEMANTINE 5 MG TABLET PO SCH (20:38)
[2020-03-01] MEDS: MEGESTROL 40 MG TABLET PO SCH (20:38)
[2020-03-01] MEDS: FERROUS SULFATE 325 MG TABLET PO SCH (20:38)
[2020-03-01] MEDS: FOLIC ACID 0.4 MG TABLET PO SCH (20:38)
[2020-03-01] MEDS: DOCUSATE SODIUM 100 MG CAPSULE PO SCH (20:38)
[2020-03-02 02:16] LABS: Basophils # 0.1 10*3/uL (0.0-0.2); Basophils % 1.5 % (0.0-0.8); Eosinophils # 0.3 10*3/uL (0.0-0.87); Hematocrit 33.2 VOL% (35.7-47.0); Hemoglobin 10.5 GM/DL (12.0-16.0); Immature Granulocytes % 0.5 %; Immature Granulocytes Absolute 0.04 #; Lymphocytes % 12.4 % (21.3-54.2); Mean Corpuscular HGB Conc 31.6 GM/DL (32-36); Mean Corpuscular Volume 93.8 FL (87-102); Mean Platelet Volume 10.2 FL (9.6-12.0); Monocytes % 12.9 % (1.7-12.7); Neutrophils % 69.7 % (38.7-73.9); Platelet Count 223 T/CUMM (130-400); Red Blood Count 3.54 MC/CUMM (3.8-5.5); Red Cell Distribution Width 17.1 % (9.3-17.3); White Blood Count 8.2 T/CUMM (4-12)
[2020-03-02] MEDS: HEPARIN 5,000 UNIT/1 ML VIAL SUBCUT SCH ×3 (05:56→22:19)
[2020-03-02 08:25] LABS: Calcium 9.5 MG/DL (8.5-10.1); Osmolality,Calculated 290.1 MOS/KG (273-304)
[2020-03-02] MEDS: OLMESARTAN 20 MG TABLET PO SCH (08:54)
[2020-03-02] MEDS: AMIODARONE 200 MG TABLET PO SCH (08:54)
[2020-03-02] MEDS: amLODIPine 5 MG TABLET PO SCH ×2 (08:54→21:17)
[2020-03-02] MEDS: ASPIRIN EC 81 MG TABLET PO SCH (08:54)
[2020-03-02] MEDS: FERROUS SULFATE 325 MG TABLET PO SCH ×2 (08:54→21:17)
[2020-03-02] MEDS: MEMANTINE 5 MG TABLET PO SCH ×2 (08:54→21:17)
[2020-03-02] MEDS: cloNIDine 0.1 MG TABLET PO SCH ×3 (08:54→21:17)
[2020-03-02] MEDS: METOPROLOL TARTRATE 100 MG TABLET PO SCH ×2 (08:54→21:17)
[2020-03-02] MEDS: CYANOCOBALAMIN 100 MCG TABLET PO SCH (08:55)
[2020-03-02] MEDS: DOCUSATE SODIUM 100 MG CAPSULE PO SCH ×2 (08:55→21:17)
[2020-03-02] MEDS: FOLIC ACID 0.4 MG TABLET PO SCH ×2 (08:56→21:17)
[2020-03-02] MEDS: MEGESTROL 40 MG TABLET PO SCH (21:18)
[2020-03-03 05:20] LABS: Basophils # 0.1 10*3/uL (0.0-0.2); Eosinophils # 0.4 10*3/uL (0.0-0.87); Eosinophils % 6.1 % (0.00-10.9); Hematocrit 28.6 VOL% (35.7-47.0); Hemoglobin 9.2 GM/DL (12.0-16.0); Immature Granulocytes % 0.3 %; Immature Granulocytes Absolute 0.02 #; Lymphocytes # 1.4 10*3/uL (1.4-4.0); Lymphocytes % 21.4 % (21.3-54.2); Mean Corpuscular HGB Conc 32.2 GM/DL (32-36); Mean Corpuscular Volume 94.7 FL (87-102); Mean Platelet Volume 9.9 FL (9.6-12.0); Monocytes % 14.4 % (1.7-12.7); Neutrophils % 55.8 % (38.7-73.9); Platelet Count 188 T/CUMM (130-400); Red Blood Count 3.02 MC/CUMM (3.8-5.5); White Blood Count 6.5 T/CUMM (4-12)
[2020-03-03] MEDS: HEPARIN 5,000 UNIT/1 ML VIAL SUBCUT SCH (05:59)
[2020-03-03 07:58] VITALS: BP 165/94
[2020-03-03] MEDS: METOPROLOL TARTRATE 100 MG TABLET PO SCH (08:30)
[2020-03-03] MEDS: CYANOCOBALAMIN 100 MCG TABLET PO SCH (08:30)
[2020-03-03] MEDS: FOLIC ACID 0.4 MG TABLET PO SCH (08:30)
[2020-03-03] MEDS: OLMESARTAN 20 MG TABLET PO SCH (08:30)
[2020-03-03] MEDS: DOCUSATE SODIUM 100 MG CAPSULE PO SCH (08:31)
[2020-03-03] MEDS: amLODIPine 5 MG TABLET PO SCH (08:31)
[2020-03-03] MEDS: MEMANTINE 5 MG TABLET PO SCH (08:31)
[2020-03-03] MEDS: ASPIRIN EC 81 MG TABLET PO SCH (08:31)
[2020-03-03] MEDS: cloNIDine 0.1 MG TABLET PO SCH (08:31)
[2020-03-03] MEDS: AMIODARONE 200 MG TABLET PO SCH (08:31)
[2020-03-03] MEDS: FERROUS SULFATE 325 MG TABLET PO SCH (08:31)
== END 2020-03-03 11:03 | DRG 291 ==
LOC: EDBD → EDUNIT# → N.ED 11:43 → N.EDINP 14:11 → N.TELEN 16:09
PROVIDERS: ADMIT Internal Medicine; ATTEND Internal Medicine

== ENCOUNTER 2020-04-16 07:39 | Inpatient (IN) ==
[2020-04-16 08:02] LABS: Basophils # 0.1 10*3/uL (0.0-0.2); Basophils % 0.3 % (0.0-0.8); Hematocrit 40.4 VOL% (35.7-47.0); Hemoglobin 12.7 GM/DL (12.0-16.0); Immature Granulocytes % 0.5 %; Immature Granulocytes Absolute 0.07 #; Lymphocytes # 0.7 10*3/uL (1.4-4.0); Lymphocytes % 5.1 % (21.3-54.2); Mean Corpuscular HGB Conc 31.4 GM/DL (32-36); Mean Platelet Volume 9.7 FL (9.6-12.0); Monocytes % 6.8 % (1.7-12.7); Neutrophils % 87.3 % (38.7-73.9); Platelet Count 263 T/CUMM (130-400); Red Blood Count 4.21 MC/CUMM (3.8-5.5); Red Cell Distribution Width 14.7 % (9.3-17.3); White Blood Count 14.7 T/CUMM (4-12)
[2020-04-16 08:34] LABS: Alanine Aminotransferase < 9 U/L (13-56); Albumin 3.3 G/DL (3.4-5.0); Alkaline Phosphatase 98 U/L (45-117); Aspartate Amino Transferase 11 U/L (0-37); Blood Urea Nitrogen 25 MG/DL (7-18); Calcium 10.2 MG/DL (8.5-10.1); Carbon Dioxide 29 MMOL/L (21-32); Estimated Glom Filtration Rate 8 ML/MIN; Glucose 128 MG/DL (74-106); Osmolality,Calculated 278.8 MOS/KG (273-304); Sodium 137 MMOL/L (136-145); Total Protein 7.2 G/DL (6.4-8.3)
[2020-04-16 08:46] LABS: Bacteria,Urine Occasional /HPF (Few); Bilirubin,Urine Negative (Negative); Blood, Urine Negative (Negative); Glucose,Urine (UA) >=500 mg/dL (Negative); Ketones,Urine 5 mg/dL (Negative); Mucus,Urine Occasional /LPF (Occasional); Nitrite,Urine Negative (Negative); Protein,Urine >=500 MG/DL; RBC,Urine 2 /HPF (0-4); Urine Appearance CLEAR (Clear); Urine Color Yellow (Yellow); Urine Specific Gravity 1.009 (1.001-1.035); Urine Urobilinogen < 2.0 EU/DL (0.2-1.0); WBC,Urine 1 /HPF (0-6)
[2020-04-16] MEDS ORDERED: SODIUM CHLORIDE 0.9% 1,000 ML IV SCH (10:00)
[2020-04-16] MEDS ORDERED: ACETAMINOPHEN 325 MG TABLET PO PRN (11:12)
[2020-04-16] MEDS ORDERED: MORPHINE 4 MG/1 ML VIAL IV PRN (11:12)
[2020-04-16] MEDS ORDERED: ALBUTEROL/IPRATROPIUM 3 ML NEB RESP TX PRN (11:12)
[2020-04-16] MEDS ORDERED: LACTATED RINGERS 1,000 ML IV SCH (11:30)
[2020-04-16] MEDS ORDERED: PIPERACILLIN/TAZOBACTAM 3,375 MG VIAL IV ONE (11:50)
[2020-04-16] MEDS ORDERED: SODIUM CHLORIDE 0.9% 100 ML IV ONE (11:51)
[2020-04-16] MEDS ORDERED: BENZOCAINE/BUTAMBEN/TETRACAINE SPRAY 20 GM CAN TOP ONE (12:00)
[2020-04-16] MEDS: PIPERACILLIN/TAZOBACTAM 3,375 MG in SODIUM CHLORIDE 0.9% 100 ML IV SCH (12:32)
[2020-04-16] MEDS: POTASSIUM CHLORIDE RIDER 10 MEQ in PREMIX 1 EACH IV PRN ×5 (14:10→22:22)
[2020-04-16] MEDS: ONDANSETRON 4 MG/2 ML VIAL IV PRN (18:14)
[2020-04-16] MEDS: KETOROLAC 30 MG/1 ML VIAL IV PRN (18:45)
[2020-04-16] MEDS: LACTATED RINGERS IV SCH (23:28)
[2020-04-16] MEDS: MULTIVITAMIN IV SCH (23:28)
[2020-04-16] MEDS: DEXTROSE 5% IV SCH (23:28)
[2020-04-16] MEDS: THIAMINE IV SCH (23:28)
[2020-04-17] MEDS: PIPERACILLIN/TAZOBACTAM 3,375 MG in SODIUM CHLORIDE 0.9% 100 ML IV SCH ×2 (01:29→13:59)
[2020-04-17] MEDS ORDERED: ENOXAPARIN 30 MG/0.3 ML SYRINGE SUBCUT SCH ×2 (06:00→09:00)
[2020-04-17 06:26] LABS: Basophils % 0.4 % (0.0-0.8); Eosinophils # 0.1 10*3/uL (0.0-0.87); Eosinophils % 0.5 % (0.00-10.9); Hematocrit 35.9 VOL% (35.7-47.0); Hemoglobin 11.3 GM/DL (12.0-16.0); Immature Granulocytes % 0.3 %; Immature Granulocytes Absolute 0.03 #; Lymphocytes # 0.7 10*3/uL (1.4-4.0); Lymphocytes % 6.5 % (21.3-54.2); Mean Corpuscular HGB Conc 31.5 GM/DL (32-36); Mean Corpuscular Volume 94.5 FL (87-102); Mean Platelet Volume 9.8 FL (9.6-12.0); Monocytes % 13.5 % (1.7-12.7); Neutrophils % 78.8 % (38.7-73.9); Platelet Count 245 T/CUMM (130-400); Red Cell Distribution Width 14.8 % (9.3-17.3); White Blood Count 10.9 T/CUMM (4-12)
[2020-04-17 06:40] LABS: Calcium 9.2 MG/DL (8.5-10.1); Osmolality,Calculated 275.4 MOS/KG (273-304); Potassium 3.6 MMOL/L (3.5-5.1)
[2020-04-17] MEDS: MORPHINE 4 MG/1 ML VIAL IV PRN ×3 (09:26→21:48)
[2020-04-17] MEDS: PANTOPRAZOLE 40 MG VIAL IV SCH (09:30)
[2020-04-17] MEDS: DEXTROSE 5% IV SCH (12:23)
[2020-04-17] MEDS: THIAMINE IV SCH (12:23)
[2020-04-17] MEDS: MULTIVITAMIN IV SCH (12:23)
[2020-04-17] MEDS: LACTATED RINGERS IV SCH (12:23)
[2020-04-17] MEDS: DEXTROSE 5% LACTATED RINGERS 1,000 ML IV SCH (14:02)
[2020-04-17] MEDS: KETOROLAC 30 MG/1 ML VIAL IV PRN (19:26)
[2020-04-17] MEDS: ONDANSETRON 4 MG/2 ML VIAL IV PRN (21:48)
[2020-04-18] MEDS: PIPERACILLIN/TAZOBACTAM 3,375 MG in SODIUM CHLORIDE 0.9% 100 ML IV SCH ×2 (01:59→13:08)
[2020-04-18] MEDS: DEXTROSE 5% LACTATED RINGERS 1,000 ML IV SCH ×2 (02:15→08:34)
[2020-04-18] MEDS: ENOXAPARIN 30 MG/0.3 ML SYRINGE SUBCUT SCH (08:28)
[2020-04-18] MEDS: PANTOPRAZOLE 40 MG VIAL IV SCH (08:33)
[2020-04-18] MEDS: KETOROLAC 30 MG/1 ML VIAL IV PRN (09:28)
[2020-04-18] MEDS: THIAMINE 100 MG TABLET PO SCH (09:34)
[2020-04-18] MEDS: MULTIVITAMIN (CENTRUM) TABLET PO SCH (09:34)
[2020-04-19] MEDS: DEXTROSE 5% LACTATED RINGERS 1,000 ML IV SCH ×4 (01:34→23:27)
[2020-04-19] MEDS: PIPERACILLIN/TAZOBACTAM 3,375 MG in SODIUM CHLORIDE 0.9% 100 ML IV SCH ×2 (01:35→14:10)
[2020-04-19] MEDS ORDERED: diphenhydrAMINE 50 MG/1 ML VIAL IM ONE (02:28)
[2020-04-19] MEDS ORDERED: diphenhydrAMINE 50 MG/1 ML VIAL IV ONE (03:11)
[2020-04-19 08:15] LABS: Basophils # 0.1 10*3/uL (0.0-0.2); Basophils % 0.5 % (0.0-0.8); Eosinophils # 0.3 10*3/uL (0.0-0.87); Eosinophils % 2.5 % (0.00-10.9); Hematocrit 37.1 VOL% (35.7-47.0); Hemoglobin 11.5 GM/DL (12.0-16.0); Immature Granulocytes % 0.4 %; Immature Granulocytes Absolute 0.05 #; Lymphocytes # 0.7 10*3/uL (1.4-4.0); Lymphocytes % 5.3 % (21.3-54.2); Mean Corpuscular Volume 96.6 FL (87-102); Mean Platelet Volume 9.6 FL (9.6-12.0); Monocytes % 13.1 % (1.7-12.7); Neutrophils % 78.2 % (38.7-73.9); Platelet Count 180 T/CUMM (130-400); Red Blood Count 3.84 MC/CUMM (3.8-5.5); Red Cell Distribution Width 14.6 % (9.3-17.3)
[2020-04-19 08:31] LABS: Calcium 9.1 MG/DL (8.5-10.1); Osmolality,Calculated 272.4 MOS/KG (273-304); Potassium 4.6 MMOL/L (3.5-5.1)
[2020-04-19] MEDS: PANTOPRAZOLE 40 MG VIAL IV SCH (11:11)
[2020-04-19] MEDS: ENOXAPARIN 30 MG/0.3 ML SYRINGE SUBCUT SCH (11:11)
[2020-04-19] MEDS: THIAMINE 100 MG TABLET PO SCH (11:48)
[2020-04-19] MEDS: MULTIVITAMIN (CENTRUM) TABLET PO SCH (11:48)
[2020-04-20] MEDS: PIPERACILLIN/TAZOBACTAM 3,375 MG in SODIUM CHLORIDE 0.9% 100 ML IV SCH ×2 (01:51→13:21)
[2020-04-20 06:16] LABS: Basophils # 0.1 10*3/uL (0.0-0.2); Basophils % 0.4 % (0.0-0.8); Eosinophils # 0.3 10*3/uL (0.0-0.87); Eosinophils % 1.8 % (0.00-10.9); Hematocrit 37.5 VOL% (35.7-47.0); Hemoglobin 11.3 GM/DL (12.0-16.0); Immature Granulocytes % 0.8 %; Immature Granulocytes Absolute 0.14 #; Lymphocytes # 0.7 10*3/uL (1.4-4.0); Lymphocytes % 3.9 % (21.3-54.2); Mean Corpuscular HGB Conc 30.1 GM/DL (32-36); Mean Corpuscular Volume 98.2 FL (87-102); Mean Platelet Volume 9.3 FL (9.6-12.0); Monocytes % 12.9 % (1.7-12.7); Neutrophils % 80.2 % (38.7-73.9); Platelet Count 181 T/CUMM (130-400); Red Blood Count 3.82 MC/CUMM (3.8-5.5); Red Cell Distribution Width 14.6 % (9.3-17.3); White Blood Count 16.9 T/CUMM (4-12)
[2020-04-20 06:40] LABS: Eosinophils 3 % (0-10); Lymphocytes 5 % (20-55); Platelet Estimate Adequate; Segmented Neutrophils 84 % (50-85); Total Cells Counted 100
[2020-04-20 06:41] LABS: Hypochromasia 1+; Microcytosis 1+
[2020-04-20] MEDS: MULTIVITAMIN (CENTRUM) TABLET PO SCH (08:31)
[2020-04-20] MEDS: THIAMINE 100 MG TABLET PO SCH (08:31)
[2020-04-20] MEDS: ENOXAPARIN 30 MG/0.3 ML SYRINGE SUBCUT SCH (09:34)
[2020-04-20] MEDS: PANTOPRAZOLE 40 MG VIAL IV SCH (09:34)
[2020-04-20] MEDS ORDERED: AMINO ACIDS/DEXT/LYTES 4.25-5% 2,000 ML IV SCH (17:00)
[2020-04-20] MEDS ORDERED: STERILE WATER IV SCH (17:00)
[2020-04-20] MEDS ORDERED: [UNRECOGNIZED DRUG - OTHER] IV SCH (17:00)
[2020-04-20] MEDS ORDERED: TRACE ELEMENTS IV SCH (17:00)
[2020-04-20] MEDS ORDERED: DEXTROSE 10% 1,000 ML IV PRN (17:00)
[2020-04-20] MEDS ORDERED: MULTIVITAMIN IV SCH (17:00)
[2020-04-20] MEDS: DEXTROSE 5% LACTATED RINGERS 1,000 ML IV SCH (17:42)
[2020-04-20] MEDS: FAT EMULSION 20% 250 ML IV SCH (18:21)
[2020-04-20] MEDS: MORPHINE 4 MG/1 ML VIAL IV PRN (21:14)
[2020-04-21] MEDS: PIPERACILLIN/TAZOBACTAM 3,375 MG in SODIUM CHLORIDE 0.9% 100 ML IV SCH ×2 (03:39→14:35)
[2020-04-21 04:23] LABS: Calcium 8.9 MG/DL (8.5-10.1); Osmolality,Calculated 269.7 MOS/KG (273-304); Potassium 3.8 MMOL/L (3.5-5.1)
[2020-04-21] MEDS: DEXTROSE 5% LACTATED RINGERS 1,000 ML IV SCH (06:33)
[2020-04-21 07:08] LABS: Basophils # 0.1 10*3/uL (0.0-0.2); Basophils % 0.4 % (0.0-0.8); Eosinophils # 0.2 10*3/uL (0.0-0.87); Eosinophils % 1.7 % (0.00-10.9); Hematocrit 37.7 VOL% (35.7-47.0); Hemoglobin 11.6 GM/DL (12.0-16.0); Immature Granulocytes % 0.8 %; Immature Granulocytes Absolute 0.11 #; Lymphocytes # 0.6 10*3/uL (1.4-4.0); Lymphocytes % 4.6 % (21.3-54.2); Mean Corpuscular HGB Conc 30.8 GM/DL (32-36); Mean Corpuscular Volume 95.9 FL (87-102); Mean Platelet Volume 9.4 FL (9.6-12.0); Monocytes % 14.2 % (1.7-12.7); Neutrophils % 78.3 % (38.7-73.9); Platelet Count 191 T/CUMM (130-400); Red Blood Count 3.93 MC/CUMM (3.8-5.5); Red Cell Distribution Width 14.6 % (9.3-17.3)
[2020-04-21 07:30] LABS: Eosinophils 4 % (0-10); Hypochromasia 1+; Lymphocytes 5 % (20-55); Microcytosis 1+; Platelet Estimate Adequate; Segmented Neutrophils 78 % (50-85); Total Cells Counted 100
[2020-04-21] MEDS: THIAMINE 100 MG TABLET PO SCH (08:58)
[2020-04-21] MEDS: MULTIVITAMIN (CENTRUM) TABLET PO SCH (08:58)
[2020-04-21] MEDS: ENOXAPARIN 30 MG/0.3 ML SYRINGE SUBCUT SCH (09:50)
[2020-04-21] MEDS: PANTOPRAZOLE 40 MG VIAL IV SCH (09:55)
[2020-04-21] MEDS ORDERED: STERILE WATER IV ONE (10:00)
[2020-04-21] MEDS ORDERED: AMINO ACIDS IV ONE (10:00)
[2020-04-21] MEDS ORDERED: TRACE ELEMENTS IV ONE (10:00)
[2020-04-21] MEDS ORDERED: [UNRECOGNIZED DRUG - OTHER] IV ONE (10:00)
[2020-04-21] MEDS ORDERED: FAT EMULSION 20% 250 ML IV SCH (14:00)
[2020-04-21] MEDS: diphenhydrAMINE 50 MG/1 ML VIAL IV PRN (23:14)
[2020-04-22] MEDS: PIPERACILLIN/TAZOBACTAM 3,375 MG in SODIUM CHLORIDE 0.9% 100 ML IV SCH ×2 (03:33→15:37)
[2020-04-22 05:40] LABS: Basophils # 0.1 10*3/uL (0.0-0.2); Basophils % 0.4 % (0.0-0.8); Eosinophils # 0.3 10*3/uL (0.0-0.87); Hematocrit 36.1 VOL% (35.7-47.0); Hemoglobin 11.3 GM/DL (12.0-16.0); Immature Granulocytes % 0.8 %; Immature Granulocytes Absolute 0.11 #; Lymphocytes # 0.8 10*3/uL (1.4-4.0); Mean Corpuscular HGB Conc 31.3 GM/DL (32-36); Mean Corpuscular Volume 93.3 FL (87-102); Mean Platelet Volume 9.6 FL (9.6-12.0); Monocytes % 19.5 % (1.7-12.7); Neutrophils % 71.3 % (38.7-73.9); Platelet Count 216 T/CUMM (130-400); Red Blood Count 3.87 MC/CUMM (3.8-5.5); Red Cell Distribution Width 14.6 % (9.3-17.3); White Blood Count 13.1 T/CUMM (4-12)
[2020-04-22 06:00] LABS: Eosinophils 1 % (0-10); Hypochromasia 1+; Lymphocytes 12 % (20-55); Microcytosis 1+; Ovalocytes Slight; Segmented Neutrophils 73 % (50-85); Total Cells Counted 100
[2020-04-22 06:01] LABS: Platelet Estimate Normal
[2020-04-22 06:02] LABS: Atypical Lymphocytes Few
[2020-04-22] MEDS ORDERED: HEPARIN 10,000 UNIT/10 ML VIAL IV PRN (10:58)
[2020-04-22] MEDS: THIAMINE 100 MG TABLET PO SCH (11:59)
[2020-04-22] MEDS: MULTIVITAMIN (CENTRUM) TABLET PO SCH (12:00)
[2020-04-22] MEDS: ENOXAPARIN 30 MG/0.3 ML SYRINGE SUBCUT SCH (12:46)
[2020-04-22] MEDS: PANTOPRAZOLE 40 MG VIAL IV SCH (12:51)
[2020-04-22] MEDS: FAT EMULSION 20% 250 ML IV SCH (12:54)
[2020-04-22] MEDS: MORPHINE 4 MG/1 ML VIAL IV PRN ×2 (12:54→20:09)
[2020-04-22] MEDS: [UNRECOGNIZED DRUG - OTHER] IV SCH (17:24)
[2020-04-22] MEDS: MULTIVITAMIN IV SCH (17:24)
[2020-04-22] MEDS: STERILE WATER IV SCH (17:24)
[2020-04-22] MEDS: TRACE ELEMENTS IV SCH (17:24)
[2020-04-23] MEDS: diphenhydrAMINE 50 MG/1 ML VIAL IV PRN (01:14)
[2020-04-23] MEDS: PIPERACILLIN/TAZOBACTAM 3,375 MG in SODIUM CHLORIDE 0.9% 100 ML IV SCH ×2 (03:44→16:32)
[2020-04-23 06:02] LABS: Calcium 9.2 MG/DL (8.5-10.1); Osmolality,Calculated 270.8 MOS/KG (273-304)
[2020-04-23] MEDS: ENOXAPARIN 30 MG/0.3 ML SYRINGE SUBCUT SCH (08:23)
[2020-04-23] MEDS: MULTIVITAMIN (CENTRUM) TABLET PO SCH (08:23)
[2020-04-23] MEDS: PANTOPRAZOLE 40 MG VIAL IV SCH (08:23)
[2020-04-23] MEDS: THIAMINE 100 MG TABLET PO SCH (08:23)
[2020-04-23] MEDS: POTASSIUM CHLORIDE RIDER 10 MEQ in PREMIX 1 EACH IV PRN ×5 (09:00→15:18)
[2020-04-23] MEDS: TRACE ELEMENTS IV SCH ×2 (16:49→20:43)
[2020-04-23] MEDS: STERILE WATER IV SCH ×2 (16:49→20:43)
[2020-04-23] MEDS: AMINO ACIDS IV SCH ×2 (16:49→20:43)
[2020-04-23] MEDS: [UNRECOGNIZED DRUG - OTHER] IV SCH ×2 (16:49→20:43)
[2020-04-24] MEDS: PIPERACILLIN/TAZOBACTAM 3,375 MG in SODIUM CHLORIDE 0.9% 100 ML IV SCH ×2 (01:30→13:36)
[2020-04-24] MEDS: THIAMINE 100 MG TABLET PO SCH (08:29)
[2020-04-24] MEDS: MULTIVITAMIN (CENTRUM) TABLET PO SCH (08:29)
[2020-04-24] MEDS: PANTOPRAZOLE 40 MG VIAL IV SCH (08:29)
[2020-04-24] MEDS: ENOXAPARIN 30 MG/0.3 ML SYRINGE SUBCUT SCH (08:30)
[2020-04-24] MEDS: MORPHINE 4 MG/1 ML VIAL IV PRN (15:41)
[2020-04-24] MEDS: TRACE ELEMENTS IV SCH (18:50)
[2020-04-24] MEDS: [UNRECOGNIZED DRUG - OTHER] IV SCH (18:50)
[2020-04-24] MEDS: STERILE WATER IV SCH (18:50)
[2020-04-24] MEDS: MULTIVITAMIN IV SCH (18:50)
[2020-04-25] MEDS: PIPERACILLIN/TAZOBACTAM 3,375 MG in SODIUM CHLORIDE 0.9% 100 ML IV SCH ×3 (02:38→23:55)
[2020-04-25] MEDS: diphenhydrAMINE 50 MG/1 ML VIAL IV PRN ×2 (02:56→21:10)
[2020-04-25] MEDS: ENOXAPARIN 30 MG/0.3 ML SYRINGE SUBCUT SCH (08:57)
[2020-04-25] MEDS: FAT EMULSION 20% 250 ML IV SCH (08:57)
[2020-04-25] MEDS: MULTIVITAMIN (CENTRUM) TABLET PO SCH (08:57)
[2020-04-25] MEDS: THIAMINE 100 MG TABLET PO SCH (08:57)
[2020-04-25] MEDS: PANTOPRAZOLE 40 MG VIAL IV SCH (08:57)
[2020-04-25] MEDS: hydrALAZINE 20 MG/1 ML VIAL IV PRN (09:11)
[2020-04-25] MEDS: ONDANSETRON 4 MG/2 ML VIAL IV PRN (12:40)
[2020-04-25] MEDS: MORPHINE 4 MG/1 ML VIAL IV PRN ×2 (12:40→23:55)
[2020-04-25 15:58] LABS: Calcium 9.2 MG/DL (8.5-10.1); Osmolality,Calculated 278.7 MOS/KG (273-304); Potassium 3.4 MMOL/L (3.5-5.1)
[2020-04-25] MEDS: STERILE WATER IV SCH (17:26)
[2020-04-25] MEDS: TRACE ELEMENTS IV SCH (17:26)
[2020-04-25] MEDS: AMINO ACIDS IV SCH (17:26)
[2020-04-25] MEDS: [UNRECOGNIZED DRUG - OTHER] IV SCH (17:26)
[2020-04-25 18:49] LABS: Bacteria,Urine Occasional /HPF (Few); Bilirubin,Urine Negative (Negative); Blood, Urine Small mg/dL (Negative); Glucose,Urine (UA) >=500 mg/dL (Negative); Ketones,Urine Negative (Negative); Nitrite,Urine Negative (Negative); Protein,Urine 100 MG/DL; RBC,Urine 11 /HPF (0-4); Squamous Epithelial Cell,Urine Moderate /HPF (0-10); Urine Appearance CLOUDY (Clear); Urine Color Yellow (Yellow); Urine Specific Gravity 1.005 (1.001-1.035); Urine Urobilinogen < 2.0 EU/DL (0.2-1.0); WBC,Urine 6 /HPF (0-6)
[2020-04-25] MEDS: METOPROLOL TARTRATE 50 MG TABLET PO SCH (21:03)
[2020-04-25] MEDS: cloNIDine 0.1 MG TABLET PO SCH (21:03)
[2020-04-26 06:10] LABS: Basophils # 0.1 10*3/uL (0.0-0.2); Basophils % 0.8 % (0.0-0.8); Eosinophils # 0.2 10*3/uL (0.0-0.87); Eosinophils % 1.5 % (0.00-10.9); Hematocrit 34.2 VOL% (35.7-47.0); Hemoglobin 11.1 GM/DL (12.0-16.0); Immature Granulocytes % 4.1 %; Immature Granulocytes Absolute 0.56 #; Lymphocytes # 1.2 10*3/uL (1.4-4.0); Lymphocytes % 8.6 % (21.3-54.2); Mean Corpuscular HGB Conc 32.5 GM/DL (32-36); Mean Corpuscular Volume 90.2 FL (87-102); Mean Platelet Volume 9.2 FL (9.6-12.0); Monocytes % 19.4 % (1.7-12.7); Neutrophils % 65.6 % (38.7-73.9); Platelet Count 239 T/CUMM (130-400); Red Blood Count 3.79 MC/CUMM (3.8-5.5); Red Cell Distribution Width 14.6 % (9.3-17.3); White Blood Count 13.7 T/CUMM (4-12)
[2020-04-26 06:28] LABS: Calcium 9.3 MG/DL (8.5-10.1); Osmolality,Calculated 280.1 MOS/KG (273-304); Potassium 3.5 MMOL/L (3.5-5.1)
[2020-04-26 08:54] LABS: Eosinophils 1 % (0-10); Lymphocytes 6 % (20-55); Segmented Neutrophils 87 % (50-85); Total Cells Counted 100
[2020-04-26 08:58] LABS: Hypochromasia 2+; Ovalocytes Few; Platelet Estimate Normal; Polychromasia Few
[2020-04-26] MEDS: MULTIVITAMIN (CENTRUM) TABLET PO SCH (10:32)
[2020-04-26] MEDS: cloNIDine 0.1 MG TABLET PO SCH ×3 (10:32→20:29)
[2020-04-26] MEDS: FAT EMULSION 20% 250 ML IV SCH (10:33)
[2020-04-26] MEDS: METOPROLOL TARTRATE 50 MG TABLET PO SCH ×2 (10:33→20:30)
[2020-04-26] MEDS: PANTOPRAZOLE 40 MG VIAL IV SCH (10:33)
[2020-04-26] MEDS: amLODIPine 5 MG TABLET PO SCH (10:33)
[2020-04-26] MEDS: ENOXAPARIN 30 MG/0.3 ML SYRINGE SUBCUT SCH (10:34)
[2020-04-26] MEDS: THIAMINE 100 MG TABLET PO SCH (10:35)
[2020-04-26] MEDS: PIPERACILLIN/TAZOBACTAM 3,375 MG in SODIUM CHLORIDE 0.9% 100 ML IV SCH (14:30)
[2020-04-26] MEDS: STERILE WATER IV SCH (20:28)
[2020-04-26] MEDS: TRACE ELEMENTS IV SCH (20:28)
[2020-04-26] MEDS: AMINO ACIDS IV SCH (20:28)
[2020-04-26] MEDS: [UNRECOGNIZED DRUG - OTHER] IV SCH (20:28)
[2020-04-26] MEDS: MORPHINE 4 MG/1 ML VIAL IV PRN (20:29)
[2020-04-27] MEDS: PIPERACILLIN/TAZOBACTAM 3,375 MG in SODIUM CHLORIDE 0.9% 100 ML IV SCH ×3 (00:45→18:02)
[2020-04-27 06:22] LABS: Calcium 9.6 MG/DL (8.5-10.1); Osmolality,Calculated 274.1 MOS/KG (273-304); Potassium 3.6 MMOL/L (3.5-5.1)
[2020-04-27] MEDS: amLODIPine 5 MG TABLET PO SCH (14:57)
[2020-04-27] MEDS: cloNIDine 0.1 MG TABLET PO SCH ×3 (14:57→21:59)
[2020-04-27] MEDS: PANTOPRAZOLE 40 MG VIAL IV SCH (14:57)
[2020-04-27] MEDS: MULTIVITAMIN (CENTRUM) TABLET PO SCH (14:57)
[2020-04-27] MEDS: ENOXAPARIN 30 MG/0.3 ML SYRINGE SUBCUT SCH (14:57)
[2020-04-27] MEDS: METOPROLOL TARTRATE 50 MG TABLET PO SCH ×2 (14:57→21:59)
[2020-04-27] MEDS: THIAMINE 100 MG TABLET PO SCH (14:58)
[2020-04-27] MEDS: [UNRECOGNIZED DRUG - OTHER] IV SCH (18:04)
[2020-04-27] MEDS: MULTIVITAMIN IV SCH (18:04)
[2020-04-27] MEDS: TRACE ELEMENTS IV SCH (18:04)
[2020-04-27] MEDS: STERILE WATER IV SCH (18:04)
[2020-04-28] MEDS: PIPERACILLIN/TAZOBACTAM 3,375 MG in SODIUM CHLORIDE 0.9% 100 ML IV SCH ×2 (00:54→13:55)
[2020-04-28] MEDS: ONDANSETRON 4 MG/2 ML VIAL IV PRN (01:56)
[2020-04-28 08:29] LABS: Basophils # 0.1 10*3/uL (0.0-0.2); Basophils % 0.4 % (0.0-0.8); Eosinophils # 0.1 10*3/uL (0.0-0.87); Eosinophils % 0.2 % (0.00-10.9); Hematocrit 36.1 VOL% (35.7-47.0); Hemoglobin 12.3 GM/DL (12.0-16.0); Immature Granulocytes % 1.7 %; Immature Granulocytes Absolute 0.39 #; Lymphocytes # 0.7 10*3/uL (1.4-4.0); Lymphocytes % 3.2 % (21.3-54.2); Mean Corpuscular HGB Conc 34.1 GM/DL (32-36); Mean Corpuscular Volume 87.8 FL (87-102); Mean Platelet Volume 9.6 FL (9.6-12.0); Monocytes % 6.9 % (1.7-12.7); Neutrophils % 87.6 % (38.7-73.9); Platelet Count 289 T/CUMM (130-400); Red Blood Count 4.11 MC/CUMM (3.8-5.5); Red Cell Distribution Width 14.5 % (9.3-17.3); White Blood Count 23.1 T/CUMM (4-12)
[2020-04-28 08:46] LABS: Calcium 9.5 MG/DL (8.5-10.1); Osmolality,Calculated 282.7 MOS/KG (273-304); Potassium 3.1 MMOL/L (3.5-5.1)
[2020-04-28 08:48] LABS: Band Neutrophils 1 % (0-10); Eosinophils 1 % (0-10); Hypochromasia 1+; Lymphocytes 2 % (20-55); Microcytosis 1+; Platelet Estimate Adequate; Segmented Neutrophils 86 % (50-85); Total Cells Counted 100
[2020-04-28] MEDS: THIAMINE 100 MG TABLET PO SCH (09:24)
[2020-04-28] MEDS: cloNIDine 0.1 MG TABLET PO SCH ×3 (09:24→20:59)
[2020-04-28] MEDS: amLODIPine 5 MG TABLET PO SCH (09:24)
[2020-04-28] MEDS: MULTIVITAMIN (CENTRUM) TABLET PO SCH (09:24)
[2020-04-28] MEDS: METOPROLOL TARTRATE 50 MG TABLET PO SCH ×2 (09:24→20:59)
[2020-04-28] MEDS: PANTOPRAZOLE 40 MG VIAL IV SCH (12:48)
[2020-04-28] MEDS: ENOXAPARIN 30 MG/0.3 ML SYRINGE SUBCUT SCH (12:48)
[2020-04-28] MEDS: FAT EMULSION 20% 250 ML IV SCH (12:50)
[2020-04-28] MEDS: AMINO ACIDS IV SCH (18:17)
[2020-04-28] MEDS: STERILE WATER IV SCH (18:17)
[2020-04-28] MEDS: TRACE ELEMENTS IV SCH (18:17)
[2020-04-28] MEDS: [UNRECOGNIZED DRUG - OTHER] IV SCH (18:17)
[2020-04-29] MEDS: PIPERACILLIN/TAZOBACTAM 3,375 MG in SODIUM CHLORIDE 0.9% 100 ML IV SCH ×2 (02:50→14:34)
[2020-04-29 06:16] LABS: Basophils # 0.1 10*3/uL (0.0-0.2); Basophils % 0.5 % (0.0-0.8); Eosinophils # 0.3 10*3/uL (0.0-0.87); Eosinophils % 1.3 % (0.00-10.9); Hematocrit 32.4 VOL% (35.7-47.0); Hemoglobin 10.8 GM/DL (12.0-16.0); Immature Granulocytes % 2.2 %; Immature Granulocytes Absolute 0.45 #; Lymphocytes % 5.1 % (21.3-54.2); Mean Corpuscular HGB Conc 33.3 GM/DL (32-36); Mean Corpuscular Volume 89.5 FL (87-102); Mean Platelet Volume 9.2 FL (9.6-12.0); Monocytes % 10.8 % (1.7-12.7); Neutrophils % 80.1 % (38.7-73.9); Platelet Count 258 T/CUMM (130-400); Red Blood Count 3.62 MC/CUMM (3.8-5.5); Red Cell Distribution Width 14.7 % (9.3-17.3); White Blood Count 20.2 T/CUMM (4-12)
[2020-04-29 06:36] LABS: Calcium 9.8 MG/DL (8.5-10.1); Eosinophils 1 % (0-10); Hypochromasia 1+; Lymphocytes 6 % (20-55); Microcytosis 1+; Osmolality,Calculated 281.2 MOS/KG (273-304); Ovalocytes Slight; Platelet Estimate Adequate; Potassium 3.1 MMOL/L (3.5-5.1); Segmented Neutrophils 81 % (50-85); Total Cells Counted 100
[2020-04-29] MEDS: cloNIDine 0.1 MG TABLET PO SCH ×3 (08:50→22:01)
[2020-04-29] MEDS: THIAMINE 100 MG TABLET PO SCH (08:50)
[2020-04-29] MEDS: MULTIVITAMIN (CENTRUM) TABLET PO SCH (08:50)
[2020-04-29] MEDS: METOPROLOL TARTRATE 50 MG TABLET PO SCH ×2 (08:50→22:01)
[2020-04-29] MEDS: amLODIPine 5 MG TABLET PO SCH (08:50)
[2020-04-29] MEDS: ENOXAPARIN 30 MG/0.3 ML SYRINGE SUBCUT SCH (09:06)
[2020-04-29] MEDS: PANTOPRAZOLE 40 MG VIAL IV SCH (09:06)
[2020-04-29] MEDS: hydrALAZINE 20 MG/1 ML VIAL IV PRN (09:06)
[2020-04-29] MEDS: MORPHINE 4 MG/1 ML VIAL IV PRN ×2 (12:10→17:21)
[2020-04-29] MEDS: MULTIVITAMIN IV SCH (17:17)
[2020-04-29] MEDS: [UNRECOGNIZED DRUG - OTHER] IV SCH (17:17)
[2020-04-29] MEDS: STERILE WATER IV SCH (17:17)
[2020-04-29] MEDS: TRACE ELEMENTS IV SCH (17:17)
[2020-04-30] MEDS: PIPERACILLIN/TAZOBACTAM 3,375 MG in SODIUM CHLORIDE 0.9% 100 ML IV SCH ×2 (00:57→13:20)
[2020-04-30] MEDS: ENOXAPARIN 30 MG/0.3 ML SYRINGE SUBCUT SCH (09:18)
[2020-04-30] MEDS: PANTOPRAZOLE 40 MG VIAL IV SCH (09:18)
[2020-04-30] MEDS: cloNIDine 0.1 MG TABLET PO SCH ×3 (10:11→20:29)
[2020-04-30] MEDS: METOPROLOL TARTRATE 50 MG TABLET PO SCH ×2 (10:11→20:29)
[2020-04-30] MEDS: MULTIVITAMIN (CENTRUM) TABLET PO SCH (10:11)
[2020-04-30] MEDS: amLODIPine 5 MG TABLET PO SCH (10:12)
[2020-04-30] MEDS: THIAMINE 100 MG TABLET PO SCH (10:12)
[2020-04-30] MEDS: FAT EMULSION 20% 250 ML IV SCH (10:30)
[2020-04-30] MEDS ORDERED: MAGNESIUM SULF RIDER 1 GM in PREMIX 1 EACH IV ONE (15:30)
[2020-04-30] MEDS: POTASSIUM CHLORIDE IV SCH (17:39)
[2020-04-30] MEDS: TRACE ELEMENTS IV SCH (17:39)
[2020-04-30] MEDS: STERILE WATER IV SCH (17:39)
[2020-04-30] MEDS: [UNRECOGNIZED DRUG - OTHER] IV SCH (17:39)
[2020-05-01 07:01] LABS: Basophils # 0.1 10*3/uL (0.0-0.2); Basophils % 0.4 % (0.0-0.8); Eosinophils # 0.3 10*3/uL (0.0-0.87); Eosinophils % 1.5 % (0.00-10.9); Hematocrit 29.6 VOL% (35.7-47.0); Hemoglobin 9.8 GM/DL (12.0-16.0); Immature Granulocytes Absolute 0.39 #; Lymphocytes # 0.9 10*3/uL (1.4-4.0); Lymphocytes % 4.4 % (21.3-54.2); Mean Corpuscular HGB Conc 33.1 GM/DL (32-36); Mean Corpuscular Volume 91.1 FL (87-102); Mean Platelet Volume 9.3 FL (9.6-12.0); Monocytes % 9.5 % (1.7-12.7); Neutrophils % 82.2 % (38.7-73.9); Platelet Count 248 T/CUMM (130-400); Red Blood Count 3.25 MC/CUMM (3.8-5.5); White Blood Count 19.1 T/CUMM (4-12)
[2020-05-01 07:24] LABS: Anisocytosis 1+; Calcium 8.8 MG/DL (8.5-10.1); Lymphocytes 5 % (20-55); Myelocytes 1 %; Osmolality,Calculated 275.4 MOS/KG (273-304); Platelet Estimate Normal; Potassium 3.6 MMOL/L (3.5-5.1); Segmented Neutrophils 82 % (50-85); Total Cells Counted 100
[2020-05-01 07:25] LABS: Calcium 9.2 MG/DL (8.5-10.1); Misc Morphology 5S; Osmolality,Calculated 273.5 MOS/KG (273-304); Potassium 3.6 MMOL/L (3.5-5.1)
[2020-05-01] MEDS: PANTOPRAZOLE 40 MG VIAL IV SCH (08:19)
[2020-05-01] MEDS: THIAMINE 100 MG TABLET PO SCH (08:21)
[2020-05-01] MEDS: METOPROLOL TARTRATE 50 MG TABLET PO SCH ×2 (08:21→22:25)
[2020-05-01] MEDS: MULTIVITAMIN (CENTRUM) TABLET PO SCH (08:21)
[2020-05-01] MEDS: ENOXAPARIN 30 MG/0.3 ML SYRINGE SUBCUT SCH (08:21)
[2020-05-01] MEDS: cloNIDine 0.1 MG TABLET PO SCH ×3 (08:22→22:25)
[2020-05-01] MEDS: amLODIPine 5 MG TABLET PO SCH (08:22)
[2020-05-01] MEDS: PIPERACILLIN/TAZOBACTAM 3,375 MG in SODIUM CHLORIDE 0.9% 100 ML IV SCH ×2 (13:17)
[2020-05-01] MEDS: MORPHINE 4 MG/1 ML VIAL IV PRN (13:17)
[2020-05-01] MEDS: [UNRECOGNIZED DRUG - OTHER] IV SCH (18:00)
[2020-05-01] MEDS: POTASSIUM CHLORIDE IV SCH (18:00)
[2020-05-01] MEDS: MULTIVITAMIN IV SCH (18:00)
[2020-05-01] MEDS: TRACE ELEMENTS IV SCH (18:00)
[2020-05-02] MEDS: PIPERACILLIN/TAZOBACTAM 3,375 MG in SODIUM CHLORIDE 0.9% 100 ML IV SCH ×2 (01:09→15:58)
[2020-05-02] MEDS: cloNIDine 0.1 MG TABLET PO SCH ×2 (10:30→20:26)
[2020-05-02] MEDS: METOPROLOL TARTRATE 50 MG TABLET PO SCH (10:30)
[2020-05-02] MEDS: THIAMINE 100 MG TABLET PO SCH (10:30)
[2020-05-02] MEDS: MULTIVITAMIN (CENTRUM) TABLET PO SCH (10:30)
[2020-05-02] MEDS: amLODIPine 5 MG TABLET PO SCH (10:30)
[2020-05-02] MEDS: ENOXAPARIN 30 MG/0.3 ML SYRINGE SUBCUT SCH (10:31)
[2020-05-02] MEDS: FAT EMULSION 20% 250 ML IV SCH (10:31)
[2020-05-02] MEDS: ONDANSETRON 4 MG/2 ML VIAL IV PRN (15:57)
[2020-05-02] MEDS: POTASSIUM CHLORIDE IV SCH (16:52)
[2020-05-02] MEDS: [UNRECOGNIZED DRUG - OTHER] IV SCH (16:52)
[2020-05-02] MEDS: STERILE WATER IV SCH (16:52)
[2020-05-02] MEDS: PANTOPRAZOLE 40 MG VIAL IV SCH (16:52)
[2020-05-02] MEDS: TRACE ELEMENTS IV SCH (16:52)
[2020-05-03] MEDS: METOPROLOL TARTRATE 50 MG TABLET PO SCH ×3 (02:53→22:19)
[2020-05-03] MEDS: cloNIDine 0.1 MG TABLET PO SCH ×4 (02:53→22:19)
[2020-05-03] MEDS: PIPERACILLIN/TAZOBACTAM 3,375 MG in SODIUM CHLORIDE 0.9% 100 ML IV SCH ×2 (02:53→14:27)
[2020-05-03] MEDS: ENOXAPARIN 30 MG/0.3 ML SYRINGE SUBCUT SCH (11:08)
[2020-05-03] MEDS: PANTOPRAZOLE 40 MG VIAL IV SCH (11:08)
[2020-05-03] MEDS: MULTIVITAMIN (CENTRUM) TABLET PO SCH (12:36)
[2020-05-03] MEDS: THIAMINE 100 MG TABLET PO SCH (12:36)
[2020-05-03] MEDS: amLODIPine 5 MG TABLET PO SCH (12:36)
[2020-05-03] MEDS: [UNRECOGNIZED DRUG - OTHER] IV SCH (17:51)
[2020-05-03] MEDS: STERILE WATER IV SCH (17:51)
[2020-05-03] MEDS: POTASSIUM CHLORIDE IV SCH (17:51)
[2020-05-03] MEDS: TRACE ELEMENTS IV SCH (17:51)
[2020-05-03] MEDS: ONDANSETRON 4 MG/2 ML VIAL IV PRN (22:39)
[2020-05-04] MEDS: PIPERACILLIN/TAZOBACTAM 3,375 MG in SODIUM CHLORIDE 0.9% 100 ML IV SCH (04:16)
[2020-05-04] MEDS: ONDANSETRON 4 MG/2 ML VIAL IV PRN ×3 (08:32→21:30)
[2020-05-04] MEDS: METOPROLOL TARTRATE 50 MG TABLET PO SCH ×2 (10:33→20:38)
[2020-05-04] MEDS: MULTIVITAMIN (CENTRUM) TABLET PO SCH (10:33)
[2020-05-04] MEDS: amLODIPine 5 MG TABLET PO SCH (10:33)
[2020-05-04] MEDS: ENOXAPARIN 30 MG/0.3 ML SYRINGE SUBCUT SCH (10:33)
[2020-05-04] MEDS: THIAMINE 100 MG TABLET PO SCH (10:33)
[2020-05-04] MEDS: cloNIDine 0.1 MG TABLET PO SCH ×3 (10:33→20:38)
[2020-05-04] MEDS: PANTOPRAZOLE 40 MG VIAL IV SCH (10:33)
[2020-05-04] MEDS: FAT EMULSION 20% 250 ML IV SCH (10:34)
[2020-05-04] MEDS ORDERED: FAT EMULSION 20% 250 ML IV SCH (14:00)
[2020-05-04] MEDS: POTASSIUM CHLORIDE IV SCH (16:02)
[2020-05-04] MEDS: MULTIVITAMIN IV SCH (16:02)
[2020-05-04] MEDS: TRACE ELEMENTS IV SCH (16:02)
[2020-05-04] MEDS: [UNRECOGNIZED DRUG - OTHER] IV SCH (16:02)
[2020-05-05] MEDS: ONDANSETRON 4 MG/2 ML VIAL IV PRN (01:09)
[2020-05-05] MEDS: MORPHINE 4 MG/1 ML VIAL IV PRN (01:09)
[2020-05-05] MEDS: PANTOPRAZOLE 40 MG VIAL IV SCH (09:33)
[2020-05-05] MEDS: ENOXAPARIN 30 MG/0.3 ML SYRINGE SUBCUT SCH (09:33)
[2020-05-05] MEDS: cloNIDine 0.1 MG TABLET PO SCH (09:35)
[2020-05-05] MEDS: amLODIPine 5 MG TABLET PO SCH (09:35)
[2020-05-05] MEDS: MULTIVITAMIN (CENTRUM) TABLET PO SCH (09:35)
[2020-05-05] MEDS: METOPROLOL TARTRATE 50 MG TABLET PO SCH (09:35)
[2020-05-05] MEDS: THIAMINE 100 MG TABLET PO SCH (09:35)
[2020-05-05 11:53] VITALS: BP 154/81
== END 2020-05-05 12:41 | disposition hospice, home (50) | DRG 393 ==
LOC: N.ED 07:39 → N.EDINP 11:35 → N.3E 16:01
PROVIDERS: ADMIT Surgery; ATTEND Surgery